=== PATIENT | female | born 1995 | race Caucasian/White ===

== ENCOUNTER 2023-06-03 18:21 | Emergency (ER) | payer BC, SELFPAY ==
[2023-06-03] VITALS (34 sets, daily range): BP systolic 113–153; BP diastolic 67–108; PULSE 71–103; RESP 12–44; TEMP 37.2; O2SAT 95–99; BMI 32.9
--- NOTE | 2023-06-03 18:25 | XR_ITS ---
Patient: GARDENIA MCCLOUD Facility:?[facility] Patient ID:?[id number] Site Patient ID:?[id number]. Site :?1995 Study:?XRay-Extremity Right ANKLE-06/03/2023 6:56:17 PM Ordering Physician:BRIT Final Report: Indication: Fall, deformity Technique: Two views Comparison: None Findings/Impression: There is a comminuted fracture at the margin of the medial malleolus extending to the posterior malleolus without significant displacement of the major fracture fragments. There is also an associated comminuted fracture of the distal fibular diaphysis with posterior displacement of the distal fracture fragment of 4 millimeters. Prominent posterior butterfly fragment. Associated soft tissue swelling. Dictated by Rudy Chino MD @ 06/03/2023 7:48:57 PM Signed by:?Rudy Chino MD @06/03/2023 7:48:57 PM (Electronic Signature)
--- NOTE | 2023-06-03 18:33 | ED.LOWEXIN ---
HPI - Extremity Injury (Lower) General Chief Complaint: Extremity Pain/Injury, Lower <Poncho Roldan MD - Last Filed: 06/03/23 20:42> Stated Complaint: fell, R leg pain <Poncho Roldan MD - Last Filed: 06/03/23 20:42> Time Seen by Provider: 06/03/23 18:23 <Poncho Roldan MD - Last Filed: 06/03/23 20:42> History of Present Illness HPI Narrative: This 27-year-old female comes in with an injury to her right ankle. She states that she was ambulating down some stairs and lost her footing and heard a couple cracks as she injured her right ankle. She comes in with swelling of her ankle. She does not report any other injury. She did not hit her head or have loss of consciousness. <Poncho Roldan MD - Last Filed: 06/03/23 20:42> Related Data Home Medications: Home Medications Medication Instructions Recorded Confirmed fluoxetine 20 mg capsule mg PO 06/03/23 loratadine 10 mg tablet (Claritin) 10 mg PO DAILY 06/03/23 06/03/23 oxycodone 5 mg tablet 5 mg PO DAILY PRN chronic pain 06/03/23 06/03/23 <Poncho Roldan MD - Last Filed: 06/03/23 20:42> Allergies/Adverse Reactions: Allergies Allergy/AdvReac Type Severity Reaction Status Date / Time No Known Drug Allergies Allergy Verified 06/03/23 18:35 <Poncho Roldan MD - Last Filed: 06/03/23 20:42> Review of Systems Status of ROS: Reports: 10 or more systems reviewed and unremarkable except as noted in History and below <Poncho Roldan MD - Last Filed: 06/03/23 20:42> Narrative: Constitutional: No fevers, no weight gain or loss. Eyes: No discharge. No vision changes. HENT: No congestion, no sore throat, no ear pain. Cardiovascular: No chest pain, no palpitations. Respiratory: No shortness of breath, no wheezes, no cough. Gastrointestinal: No abdominal pain, no vomiting, no diarrhea. Genitourinary: No dysuria, no hematuria. Musculoskeletal: Right ankle injury as described above. Skin: No rashes, no pruritis. Neurological: No dizziness, weakness, sensory change, speech change. Endo/Heme/Allergies: No bruising or bleeding. No polydipsia. Pysch: no suicidality, no anxiety, no insomnia. All other systems reviewed and are negative. <Poncho Roldan MD - Last Filed: 06/03/23 20:42> Exam Narrative: Exam Narrative: Constitutional: Well-developed, well-nourished, no acute distress. HEENT: Normocephalic, atraumatic. Neck: Normal range of motion. Nontender. Supple. Heart: Regular. No murmurs. Normal rate. Intact distal pulses. Lungs: Clear to auscultation. No chest discomfort. No wheezes, rhonchi, or rales. Abdomen: Normal bowel sounds. Nontender. No rebound tenderness. Genitalia: Deferred. Back: No midline tenderness. Normal range of motion. Extremities: Right ankle has swelling circumferentially. Skin: Intact. No rash. Warm. No erythema or pallor. Neurologic: No altered sensation. No weakness. Alert and oriented. Psychiatric: No suicidality. No anxiety or depression. No insomnia. Nursing notes and vitals signs are reviewed. <Poncho Roldan MD - Last Filed: 06/03/23 20:42> Const: Vital Signs, click to edit/add: Vital Signs - 24 hr 06/03/23 18:30 Temperature 99.0 F Pulse Rate [Pulse Oximeter] 96 Respiratory Rate 24 Blood Pressure [Ri ght Upper Arm] 144/108 H Pulse Oximetry 98 Oxygen Delivery Me thod Room Air <Poncho Roldan MD - Last Filed: 06/03/23 20:42> Vital Signs, click to edit/add: Vital Signs - 24 hr 06/03/23 18:30 Temperature 99.0 F Pulse Rate [Pulse Oximeter] 96 Respiratory Rate 24 Blood Pressure [Ri ght Upper Arm] 144/108 H Pulse Oximetry 98 Oxygen Delivery Me thod Room Air <Sharmaine Cohen MD - Last Filed: 06/03/23 21:02> Course Consultations Consultation #1: I, Dr. Cohen, was asked to assist for conscious sedation so that patient's leg with underlying fracture could be resplinted and re-evaluated. Her primary asked me to assist. She had appropriate hemodynamic and monitoring for conscious sedation. A total of 170 mg of propofol fall was given to achieve sedation. Patient did have supplemental oxygen on. There was no concerning hypoxia, no apnea. She recovered without complication. <Sharmaine Cohen MD - Last Filed: 06/03/23 21:02> Vital Signs Vital signs: Initial Vital Signs Temperature 99.0 F 06/03/23 18:30 Temperature Source Temporal Artery Scan 06/03/23 18:30 Pulse Rate 96 06/03/23 18:30 Respiratory Rate 24 06/03/23 18:30 Blood Pressure 144/108 H 06/03/23 18:30 Blood Pressure Mean 120 H 06/03/23 18:30 Blood Pressure Position Sitting 06/03/23 18:30 Pulse Oximetry 98 06/03/23 18:30 Oxygen Delivery Method Room Air 06/03/23 18:30 Vital Signs Temperature 99.0 F 06/03/23 18:30 Pulse Rate 96 06/03/23 18:30 Respiratory Rate 24 06/03/23 18:30 Blood Pressure 144/108 H 06/03/23 18:30 Pulse Oximetry 98 06/03/23 18:30 Oxygen Delivery Method Room Air 06/03/23 18:30 Temperature 99.0 F 06/03/23 18:30 Pulse Rate 96 06/03/23 18:30 Respiratory Rate 24 06/03/23 18:30 Blood Pressure 144/108 H 06/03/23 18:30 Pulse Oximetry 98 06/03/23 18:30 Oxygen Delivery Method Room Air 06/03/23 18:30 <Poncho Roldan MD - Last Filed: 06/03/23 20:42> Initial Vital Signs Temperature 99.0 F 06/03/23 18:30 Temperature Source Temporal Artery Scan 06/03/23 18:30 Pulse Rate 96 06/03/23 18:30 Respiratory Rate 24 06/03/23 18:30 Blood Pressure 144/108 H 06/03/23 18:30 Blood Pressure Mean 120 H 06/03/23 18:30 Blood Pressure Position Sitting 06/03/23 18:30 Pulse Oximetry 98 06/03/23 18:30 Oxygen Delivery Method Room Air 06/03/23 18:30 Vital Signs Temperature 99.0 F 06/03/23 18:30 Pulse Rate 96 06/03/23 18:30 Respiratory Rate 24 06/03/23 18:30 Blood Pressure 144/108 H 06/03/23 18:30 Pulse Oximetry 98 06/03/23 18:30 Oxygen Delivery Method Room Air 06/03/23 18:30 Temperature 99.0 F 06/03/23 18:30 Pulse Rate 96 06/03/23 18:30 Respiratory Rate 24 06/03/23 18:30 Blood Pressure 144/108 H 06/03/23 18:30 Pulse Oximetry 98 06/03/23 18:30 Oxygen Delivery Method Room Air 06/03/23 18:30 <Sharmaine Cohen MD - Last Filed: 06/03/23 21:02> Medications Administered Medications: Generic Name Dose Route Start Last Admin Trade Name Freq PRN Reason Stop Dose Admin Hydromorphone HCl 0.5 mg 06/03/23 20:34 06/03/23 19:48 Hydromorphone 0.5 Mg/0.5 Ml Inj IVP 06/03/23 20:35 0.5 mg ONCE ONE Administration Sodium Chloride 1,000 mls @ 1,000 mls/hr 06/03/23 21:00 06/03/23 20:00 0.9 % Sodium Chloride 1000 Ml IV 06/03/23 21:59 1,000 mls/hr .Q1H DOMO Administration Discontinued Medications Generic Name Dose Route Start Last Admin Trade Name Freq PRN Reason Stop Dose Admin Hydromorphone HCl 0.5 mg 06/03/23 18:32 06/03/23 18:39 Hydromorphone 0.5 Mg/0.5 Ml Inj IVP 06/03/23 18:33 0.5 mg ONCE ONE Administration Propofol 200 mg 06/03/23 19:56 06/03/23 20:04 Propofol 10 Mg/Ml Inj IVP 06/03/23 19:57 170 mg ONCE ONE Administration <Poncho Roldan MD - Last Filed: 06/03/23 20:42> Generic Name Dose Route Start Last Admin Trade Name Freq PRN Reason Stop Dose Admin Hydromorphone HCl 0.5 mg 06/03/23 20:34 06/03/23 19:48 Hydromorphone 0.5 Mg/0.5 Ml Inj IVP 06/03/23 20:35 0.5 mg ONCE ONE Administration Sodium Chloride 1,000 mls @ 1,000 mls/hr 06/03/23 21:00 06/03/23 20:00 0.9 % Sodium Chloride 1000 Ml IV 06/03/23 21:59 1,000 mls/hr .Q1H DOMO Administration Discontinued Medications Generic Name Dose Route Start Last Admin Trade Name Freq PRN Reason Stop Dose Admin Hydromorphone HCl 0.5 mg 06/03/23 18:32 06/03/23 18:39 Hydromorphone 0.5 Mg/0.5 Ml Inj IVP 06/03/23 18:33 0.5 mg ONCE ONE Administration Propofol 200 mg 06/03/23 19:56 06/03/23 20:04 Propofol 10 Mg/Ml Inj IVP 06/03/23 19:57 170 mg ONCE ONE Administration <Sharmaine Cohen MD - Last Filed: 06/03/23 21:02> MDM - Extremity Injury (Lower) MDM Narrative Medical decision making narrative: This patient comes in with an injury to her right ankle. X-ray imaging does show evidence of a comminuted fracture at the margin of the medial malleolus without any significant displacement. There is also a comminuted fracture of the distal fibula. The patient has an IV in place and did receive a dose of Dilaudid 0.5 mg. The alignment of the ankle appeared reasonable enough to apply a cast without any extra sedation. The patient had significant pain with this and that splint placed did not cause improved pain. The patient then received propofol sedation after acquiring informed consent. A new Ramana Monaco splint was placed with much better alignment and outcome. The patient received crutches and prescription for oxycodone. She is instructed to follow-up with orthopedic clinic for surgical repair next week. Dr. Vasquez assisted in the sedation. The patient received 170 mg of propofol and tolerated this well. <Poncho Roldan MD - Last Filed: 06/03/23 20:42> Imaging Data XR ankle R: Radiologist's impression: There is a comminuted fracture at the margin of the medial malleolus extending to the posterior malleolus without significant displacement of the major fracture fragments. There is also an associated comminuted fracture of the distal fibular diaphysis with posterior displacement of the distal fracture fragment of 4 mm. Prominent posterior butterfly fragment. Associated soft tissue swelling. <Poncho Roldan MD - Last Filed: 06/03/23 20:42> Discharge Plan Discharge Clinical Impression: Ankle fracture <Poncho Roldan MD - Last Filed: 06/03/23 20:42> Patient Disposition: Home w/ Parent or Adult <Poncho Roldan MD - Last Filed: 06/03/23 20:42> Condition: Stable <Poncho Roldan MD - Last Filed: 06/03/23 20:42> Additional Instructions: Wear splint with no weight-bearing. Use crutches for ambulating. Use oxycodone as needed and directed for pain relief. Follow-up with orthopedic clinic for further management and treatment. Call [phone] for appointment. <Poncho Roldan MD - Last Filed: 06/03/23 20:42> Prescriptions: No Action fluoxetine 20 mg capsule PO oxycodone 5 mg tablet 5 mg PO DAILY PRN (Reason: chronic pain) loratadine [Claritin] 10 mg tablet 10 mg PO DAILY <Poncho Roldan MD - Last Filed: 06/03/23 20:42> Follow Up/Referrals: Provider,Not a Local [Primary Care Provider] - <Poncho Roldan MD - Last Filed: 06/03/23 20:42> [facility] <Poncho Roldan MD - Last Filed: 06/03/23 20:42>
[2023-06-03] MEDS: HYDROmorphone 0.5 mg/0.5 ml inj IVP ×2 (18:39→19:48)
[2023-06-03] MEDS: 0.9 % SODIUM CHLORIDE 1000 ml 1,000 ML IV (20:00)
[2023-06-03] MEDS: PROPOFOL 10 MG/ML INJ 200 MG IVP (20:04)
== END 2023-06-03 23:14 | disposition home or self-care (01) ==
PROVIDERS: Emergency Provider Emergency Medicine Emergency Medical Services
DX: S82.891A Other fracture of right lower leg, initial encounter for closed fracture (principal); W19.XXXA Unspecified fall, initial encounter
CPT/HCPCS: 73600; 96361; 96374; 96375; 96376; 99156; 99284; J1170; J2704; J7030

== ENCOUNTER 2023-06-08 15:46 | Outpatient (CLI) | payer BC, SELFPAY | END 2023-06-08 15:47 | disposition home or self-care (01) | PROVIDERS: PCP Nurse Practitioner Family; Visit Provider Nurse Practitioner Family | DX: Z13.228 Encounter for screening for other metabolic disorders (principal); Z13.0 Encounter for screening for diseases of the blood and blood-forming organs and certain disorders involving the immune mechanism | CPT/HCPCS: 80048; 85025 ==

== ENCOUNTER 2023-06-10 09:32 | Day surgery (SDC) | payer BC, SELFPAY ==
[2023-06-10] VITALS (24 sets, daily range): BP systolic 108–163; BP diastolic 56–125; PULSE 70–112; RESP 16–28; TEMP 36.1–36.9; O2SAT 95–100; BMI 32.1
[2023-06-10] MEDS: SODIUM CHLORIDE 0.9 % (FLUSH) 10 ML SYRINGE IVF (09:55)
[2023-06-10] MEDS: LACTATED RINGERS 1000 ML 1,000 ML 100 ML IV ×3 (09:55→15:17)
--- NOTE | 2023-06-10 10:15 | SUR.PREOP ---
TIME?OUT:?1012 PT/RN/STATE EPIDEMIOLOGIST?VERIFICATION?OF?SURGICAL?SITE,?PROCEDURE,?AND?CONSENT OBTAINED?PRIOR?TO?INVASIVE?PROCEDURE.
[2023-06-10] MEDS: fentaNYL 100 MCG/2 ML inj IVP (10:22)
[2023-06-10] MEDS: MIDAZOLAM HCL 1 MG/ML inj IVP (10:22)
--- NOTE | 2023-06-10 10:45 | XR_ITS ---
Patient: GARDENIA MCCLOUD Facility:?[facility] Patient ID:?[id number] Site Patient ID:?[id number]. Site :?[id number] Study:?XRay-Extremity Right ANKLE ORIF-06/10/2023 1:46:31 PM Ordering Physician:WALLACE Final Report: INDICATION: Intraoperative guidance right ankle fracture. IMPRESSION: Three fluoroscopic images. 221 seconds fluoro time. Instrumented fusion of the tibia syndesmosis and fibular intramedullary nail which extends above the field of view. Dictated by Ebenezer Black MD @ 06/13/2023 10:24:56 AM Signed by:?Ebenezer Black MD @06/13/2023 10:24:56 AM (Electronic Signature)
[2023-06-10] MEDS: CEFAZOLIN 2 GM INJ IVP (11:10)
--- NOTE | 2023-06-10 12:38 | P.NB_ITS ---
Nerve Block Nerve Block Time Seen by Provider: 10:15 Date Seen: 06/10/23 Type of block requested by surgeon for post-operative analgesia: adductor canal Side: right Time out performed: Yes Verification of patient name: Yes Verification of date of : Yes Site marking: site marked Name of person performing procedure: Say Lin Continuous monitoring Was continuous monitoring of O2 sat, B/P, residential monitor, recorded every 15 minutes?: Yes Procedure Checklist: sterile prep, needles and gloves Ultrasound guided. Images saved: Yes Medications given in 5ml increments after negative aspiration: Ropivicaine %: 0.5 mL: 15 Needle gauge: 20 Decadron (mg): 10 Precedex (mcg): 25 Patient tolerated procedure well: Yes Additional comments: Injected in 5mL increments after negative aspiration Block Charges Block Charge (with Pro Fee): Femoral Nerve Use of Ultrasound Machine for Block: Yes- US Guidance/pain block
--- NOTE | 2023-06-10 12:40 | P.NB_ITS ---
Nerve Block Nerve Block Time Seen by Provider: 10:15 Date Seen: 06/10/23 Type of block requested by surgeon for post-operative analgesia: popliteal Side: right Time out performed: Yes Verification of patient name: Yes Verification of date of : Yes Site marking: site marked Name of person performing procedure: Say Lin Continuous monitoring Was continuous monitoring of O2 sat, B/P, quality assurance monitor final, recorded every 15 minutes?: Yes Procedure Checklist: sterile prep, needles and gloves Ultrasound guided. Images saved: Yes Medications given in 5ml increments after negative aspiration: Ropivicaine %: 0.5 mL: 15 Needle gauge: 20 Patient tolerated procedure well: Yes Additional comments: Injected in 5mL increments after negative aspiration Block Charges Block Charge (with Pro Fee): Sciatic Nerve Use of Ultrasound Machine for Block: Yes- US Guidance/pain block
--- NOTE | 2023-06-10 13:33 | PM.ORPRC ---
Procedure Note Date of procedure: 06/10/23 Procedure: PREOPERATIVE DIAGNOSIS: Right ankle Cervantes C trimalleolar fracture POSTOPERATIVE DIAGNOSIS: Right ankle Cervantes C trimalleolar fracture NAME OF OPERATION: ORIF SURGEON: Ishan Johnson MD VICE PRESIDENT OF ADVERTISING: Sara Swan PA-C ANESTHESIA: General plus popliteal block ESTIMATED BLOOD LOSS: 20 mL COMPLICATIONS: None SPECIMENS: None DRAINS: None PREOPERATIVE ANTIBIOTICS: Ancef 2 g INDICATIONS: The patient is a 27-year-old who sustained a right ankle fracture. ORIF was recommended. The risks, benefits and expected outcomes were discussed in detail. These included but were not limited to: Infection, bleeding, injury to blood vessel or nerve, venous thromboembolism. All questions were answered to their satisfaction. Use of an administrative office assistant was necessary throughout the case for patient positioning and safety, soft tissue retraction and closure. A modifier 22 should be added to this case. With the amount of comminution of both the fibula and the medial malleolus, obtaining and maintaining a reduction was quite difficult. This more than doubled the time typically required to complete the case. PROCEDURE: A popliteal block was placed by anesthesia. General anesthesia was administered. The lower extremity was prepped and draped in the usual sterile fashion. The guide pin was placed in the center of the distal fragment of the fibula, percutaneously. Its placement was confirmed with the image intensifier in multiple views. A stab incision was made around the guide pin. The opening reamer was used, to the fracture site. 2 percutaneous incisions were made over the lateral malleolus distally and 2 were made at the fracture site. These were used to regain length on the distal fragment with a reduction clamp and proximally to hold the fracture reduced with a Calvin elevator posterior to the distal fragment. The reduction finger was placed in the canal and taken to the fracture site. The long flexible guide vikas was placed across the fracture site. The 3.2 mm reamer was used in the proximal fragment. We placed the Arthrex 3 mm x 180 mm intramedullary nail. We placed a drill bit across distal syndesmotic screw hole into nail to hold the construct out to length. Attention was then turned to the medial side. A curvilinear incision was made over the medial malleolus, just distal to the fracture blisters. Subcutaneous dissection was sharply taken to the medial malleolus. Subperiosteal dissection was sharply made to expose the fracture. There was a marked amount of posterior comminution. The anterior landmarks were easily observed. Fracture hematoma was removed with a curette, forceps, suction and irrigation. We then obtained an anatomic reduction. We placed an Arthrex 3 hole medial malleolus hook plate over the medial cortex. It was tamped into place distally to engage the Hawks. Its placement was confirmed with the image intensifier. We placed 2 bicortical screws in the proximal fragment to secure the plate in an antiglide position. This provides excellent fixation of the fracture which is reduced anatomically. Attention was then returned to the fibula. We removed the drill bit and our construct remained out to length. The talons were deployed. We placed 2 x 3.5 mm quadracortical syndesmotic screws. This nicely reduces the syndesmosis. We placed 2 screws in the distal fragment. The rim buster was removed, the end cap was placed. This provides an excellent reduction of the fibula with excellent fixation. Implants were imaged in the AP, mortise and lateral views and were felt to be well placed with an excellent reduction. The talus is nicely reduced under the tibial plafond. The wounds were irrigated with normal saline. The administrative office assistant closed the medial incision with a 3-0 Vicryl and a 3-0 Monocryl in a subcuticular fashion. The syndesmotic screw incision was closed identically. The percutaneous incisions were closed with a 3-0 nylon in a simple interrupted fashion. The administrative office assistant placed a dry dressing and short leg Ramana Monaco splint. Sponge and needle counts were correct x 2. The patient tolerated the procedure well. There were no apparent complications. They were carefully transferred to the hospital bed and taken to the postanesthesia care unit in satisfactory condition. PLAN: The patient will be discharged to home. They will remain strict nonweightbearing on the lower extremity. They will continue to work on ice and elevation. She will follow up next week for wound check and three views of her ankle out of the splint prior to being seen in preparation for a short-leg, nonweightbearing cast for another 5 weeks.
[2023-06-10] MEDS: fentaNYL 100 MCG/2 ML inj 50 MCG IVP ×3 (14:24→14:54)
--- NOTE | 2023-06-10 14:27 | W.ANESCHARGE ---
Anesthesia Charges Start Date/Time Anesthesia Start Date: 06/10/23 Anesthesia Start Time: 10:55 Stop Date/Time Anesthesia Stop Date: 06/10/23 Anesthesia Stop Time: 14:24
[2023-06-10] MEDS: HYDROmorphone 0.5 mg/0.5 ml inj IVP (14:35)
--- NOTE | 2023-06-10 14:58 | SUR.PHASEI ---
TIME?OUT:?1454 PT/RN/MDA?VERIFICATION?OF?SURGICAL?SITE,?PROCEDURE,?AND?CONSENT OBTAINED?PRIOR?TO?INVASIVE?PROCEDURE.
[2023-06-10] MEDS: METOCLOPRAMIDE HCL 5 MG/ML INJ 10 MG IVP (16:03)
--- NOTE | 2023-06-10 16:20 | SUR.PHASEII ---
1600: Pt reports feeling nauseated, pt had 200cc yellow bile colored emesis. cold wash cloth applied to forehead. Pt tolerated sips of Sprite and crackers. pt requests to use bathroom, dizzy when getting up to sit in chair, wheelchair into BR with RN. Pt alert and orientated.
--- NOTE | 2023-06-10 16:58 | SUR.PHASEII ---
1640: reviewed d/c instruction with and pt. All questions answered. Pt did have another emesis, unseen amount. pt states she would like to go home. Wheelchair ride out to car, accompanied by .
== END 2023-06-10 17:02 | disposition home or self-care (01) ==
PROVIDERS: Visit Provider Orthopaedic Surgery
PROC: (CPT 27822; principal; 2023-06-10 10:45)
DX: S82.851A Displaced trimalleolar fracture of right lower leg, initial encounter for closed fracture (principal); G89.18 Other acute postprocedural pain
CPT/HCPCS: 27822; 01480; 64445; 64447; 73600; 76000; 76942; 81025; C1713; J0690; J1100; J1170; J1885; J2250; J2405; J2704; J2765; J2795; J3010; J3490; J7120

== ENCOUNTER 2023-08-18 09:45 | Outpatient (RCR) | payer BC, SELFPAY | END 2023-12-16 23:59 | disposition home or self-care (01) | PROVIDERS: Visit Provider Orthopaedic Surgery | DX: Z98.890 Other specified postprocedural states (principal); M25.571 Pain in right ankle and joints of right foot; M25.671 Stiffness of right ankle, not elsewhere classified; Z51.89 Encounter for other specified aftercare | CPT/HCPCS: 97110; 97140; 97161 ==

== ENCOUNTER 2023-09-14 06:26 | Day surgery (SDC) | payer BC, SELFPAY ==
--- NOTE | 2023-09-14 | CRLHL7_ITS ---
For Patients: As a result of the Cures Act, medical imaging exams and procedure reports are released immediately into your electronic medical record. You may view this report before your referring provider. If you have questions, please contact your health care provider. Indication: Syndesmotic screw removal Technique: Three fluoroscopic images of the right ankle. Fluoroscopic time 10 seconds. Comparison: 09/01/2023 IMPRESSION: Fluoroscopic guidance for syndesmotic screw removal. Dictated by Carlos Alberto Haro MD @ 09/15/2023 7:16:05 AM (Electronically Signed)
--- OUTSIDE RECORDS SUMMARY | 2023-09-14 06:28 | XMS_ITS | Encounter Summary ---
Author Organization [place] Address [address] [place] [address] Care Team Providers Care Communication Studies Professor Name Role Phone Zak Lin MD Unavailable Arturo Cruz MD Unavailable [phone] Bette Olmos PA-C Unavailable + [phone] Bette Olmos PA-C Unavailable + [phone] Jessie Ashraf PA-C Unavailable [phone] Dada Schultz DO Primary Care Provider [phone] Dada Schultz DO Unavailable [phone] Carolina Hancock PA-C Unavailable [phone] Encounter Details Date Type Department Care Team (Late st Contact Info) Description 06/01/2022 [facility] [place] [address] [address] Leanne Shukla, RN Social History Tobacco Use Types Packs/Day Years Used Date Smoking Tobacco: Never Smokeless Tobacco: Never Alcohol Use Standard Drinks/Week Comments Never 0 (1 standard drink = 0.6 oz pur e alcohol) Social Connection and Isolat ion Panel [NHANES] Answer Date Recorded In a typical week, how many times do you talk on the phone with family, friends, or neighbors? Twice a week 08/20/2021 How often do you get togethe r with friends or relatives? More than three times a week 08/20/2021 How often do you attend [facility] or sikhism services? Never 08/20/2021 Do you belong to any clubs o r organizations such as orthodox groups, unions, fraternal or athletic groups, or school groups? No 08/20/2021 Attends Club or Organization Meetings Not on lavonne e 08/20/2021 Are you , , di vorced, , never , or living with a partner? Never 08/20/2021 AUDIT-C Answer Date Recorded Q1: How often do you have a drink containing alcohol? Never 08/20/2021 Q2: How many drinks containi ng alcohol do you have on a typical day when you are drinking? Patient does not drink Q3: How often do you have si x or more drinks on one occasion? Never 08/20/2021 Overall Financial Resource Strain (CARDIA) Answe r Date Recorded How hard is it for you to pa y for the very basics like food, housing, medical care, and heating? Somewhat hard 08/20/2021 PHQ-2 Answer Date Recorded PHQ-2 Score 2 04/27/2022 Exercise Vital Sign Answer Date Recorde d On average, how many days pe r week do you engage in moderate to strenuous exercise (like a brisk walk)? 5 days 08/20/2021 On average, how many minutes do you engage in exercise at this level? 50 min 08/20/2021 Hunger Vital Sign Answer Date Recorded Within the past 12 months, y ou worried that your food would run out before you got the money to buy more. Patient declined Within the past 12 months, t he food you bought just didn't last and you didn't have money to get more. Patient declined PRAPARE - Transportation Answer Date Re corded In the past 12 months, has l ack of transportation kept you from medical appointments or from getting medications? No 08/06 In the past 12 months, has l ack of transportation kept you from meetings, work, or from getting things needed for daily living? No 08/20/2021 Sex and Gender Information Value Date Recorded Sex Assigned at Female 11/25/2020 10:59 AM CDT Gender Identity Female 11/25/2020 10:59 AM CDT Sexual Orientation Fritz 11/19/2022 11 :19 PM CDT COVID-19 Exposure Response Date Recorded In the last 10 days, have anya lora been in contact with someone who was confirmed or suspected to have Coronavirus/COVID-19? No / Unsure 05/20/2022 9:43 AM CDT documented as of this encounter Plan of Treatment Not on file documented as of this encounter Visit Diagnoses Not on filedocumented in this encounter Additional Health Concerns Assessment Noted Time PHQ-9 Depression Total Score: 14 023 2:01 PM SENIOR CHEMICAL PROCESS ENGINEER documented as of this encounter Care Teams Communication Studies Professor Relationship Specialty [place] [address] [place] [address] PCP - General Family Medicine 01/01/22 [place] [address] [address] Assigned Musculoskeletal Provider 04/27/21 12/11/22 Arturo Cruz MD [address] [place], [place] [address]175 Assigned Neuroscience Provider 06/08/21 11/27/22 Bette Olmos PA-C [address] [place], [place] [address] Physician Motor Vehicle Emissions Inspector Gastroenterology 06/30/21 Bette Olmos PA-C [address] [place] [address] Physician Motor Vehicle Emissions Inspector Gastroenterology 06/30/21 Jessie Ashraf PA-C [address] [address] Assigned Sleep Provider 08/30/21 [place] [address] [place] [address] Assigned PCP 05/09/22 Carolina Hancock PA-C [address] [place] [address] Assigned Gastroenterology Provider 04/01/23 07/28/23 documented as of this encounter
--- OUTSIDE RECORDS SUMMARY | 2023-09-14 06:28 | XMS_ITS | Encounter Summary ---
Author Organization [place] Address [address] [place] [address] Care Team Providers Care Sociocultural Anthropology Professor Name Role Phone Bette Olmos PA-C Unavailable + [phone] Bette Olmos PA-C Unavailable + [phone] Jessie Ashraf-Hiram Unavailable [phone] Dada Schultz DO Primary Care Provider [phone] Dada Schultz DO Unavailable [phone] Carolina Hancock-Hiram Unavailable [phone] Reason for Visit * Reason Comments Orders Patient would like a n order for a wheelchair. Encounter Details Date Type Department Care Team (Late st Contact Info) Description 06/25/2023 1:00 PM CDT Virtual Visit [address] [address] Dada Schultz DO [address] [place] [address] Ankle fracture, right, closed, initial encounter (Primary Dx); Gastroesophageal reflux disease with esophagitis without hemorrhage; Moderate major depression (H) Social History Tobacco Use Types Packs/Day Years Used Date Smoking Tobacco: Never Smokeless Tobacco: Never Alcohol Use Standard Drinks/Week Comments Never 0 (1 standard drink = 0.6 oz pur e alcohol) Social Connection and Isolat ion Panel [NHANES] Answer Date Recorded In a typical week, how many times do you talk on the phone with family, friends, or neighbors? More than three times a week 2022 How often do you get togethe r with friends or relatives? More than three times a week 2022 How often do you attend chur or restorationist services? Never 2022 Do you belong to any clubs o r organizations such as scientologist groups, unions, fraternal or athletic groups, or school groups? Yes 2022 Attends Club or Organization Meetings Not on lavonne e 2022 Are you , , di vorced, , never , or living with a partner? Living with partner 2022 AUDIT-C Answer Date Recorded Q1: How often do you have a drink containing alcohol? Never 2022 Q2: How many drinks containi ng alcohol do you have on a typical day when you are drinking? Patient does not drink Q3: How often do you have si x or more drinks on one occasion? Never 2022 PHQ-2 Answer Date Recorded PHQ-2 Score 2 06/25/2023 [facility]ational Stress Questionnaire Answer Date Recorded Do you feel stress - tense, restless, nervous, or anxious, or unable to sleep at night because your mind is troubled all the time - these days? Only a little 2022 Exercise Vital Sign Answer Date Recorde d On average, how many days pe r week do you engage in moderate to strenuous exercise (like a brisk walk)? 5 days 2022 On average, how many minutes do you engage in exercise at this level? 30 min 2022 Adolescent Education Answer Date Record ed Getting School Help Needed Not on file 11/27 Food Insecurity Answer Date Recorded Within the past 12 months, d id you worry that your food would run out before you got money to buy more? No 02/05/2023 Within the past 12 months, d id the food you bought just not last and you didn? t have money to get more? No 02/05/2023 Housing Stability Answer Date Recorded Do you have housing? (Housin g is defined as stable permanent housing and does not include staying ouside in a car, in a tent, in an abandoned building, in an overnight half-way, or couch-surfing.) Yes 02/05/2023 Are you worried about losing your housing? No 02/05/2023 Financial Resource Strain Answer Date R ecorded Within the past 12 months, h ave you or your family members you live with been unable to get utilities (heat, electricity) when it was really needed? No 02/05/2023 Transportation Needs Answer Date Record ed Within the past 12 months, h as lack of transportation kept you from medical appointments, getting your medicines, non-medical meetings or appointments, work, or from getting things that you need? No 02/05/2023 Sex and Gender Information Value Date Recorded Sex Assigned at Female 11/25/2020 10:59 AM CDT Gender Identity Female 11/25/2020 10:59 AM CDT Sexual Orientation Fritz 11/19/2022 11 :19 PM CDT documented as of this encounter Patient Instructions * Patient Instructions* Dada Schultz DO - 06/25/2023 1:00 PM CDT Printed wheelchair order done. Follow-up for preventive health visit after healed up from right ankle injury. documented in this encounter Progress Notes * Dada Schultz DO - 06/25/2023 1:00 PM CDT Shine is a 27 year old who is being evaluated via a billable video visit. How would you like to obtain your AVS? MyChart If the video visit is dropped, the invitation should be resent by: Text to cell phone: [phone] Will anyone else be joining your video visit? No Assessment & Plan See patient instructions. Ankle fracture, right, closed, initial encounter - Wheelchair Order for DME - ONLY FOR DME Gastroesophageal reflux disease with esophagitis without hemorrhage - ondansetron (ZOFRAN ODT) 4 MG ODT tab Dispense: 60 tablet; Refill: 1 - pantoprazole (PROTONIX) 20 MG EC tablet Dispense: 90 tablet; Refill: 0 Moderate major depression (H) - FLUoxetine (PROZAC) 20 MG capsule Dispense: 270 capsule; Refill: 0 BMI Estimated body mass index is 31 kg/m?? as calculated from the following: Height as of 01/26/23: 1.6 m (5' 3). Weight as of 01/26/23: 79.4 kg (175 lb). Alice Riojas is a 27 year old, presenting for the following health issues: Orders (Patient would like an order for a wheelchair.) 06/25/2023 12:38 PM Additional Questions Roomed by Sissy Becerra MA Accompanied by Self History of Present Illness Reason for visit: Mobility aid Symptom onset: More than a month Symptoms include: Loss of balance, falls, falling down stairs and fractured ankle, fell and bumped head the next day Symptom intensity: Severe Symptom progression: Worsening Had these symptoms before: Yes Has tried/received treatment for these symptoms: No What makes it worse: Walking, increased heartbeat makes me feel horrible What makes it better: Rest and sitting She eats 2-3 servings of fruits and vegetables daily.She consumes 4 sweetened beverage(s) daily.Sheexercises with enough effort to increase her heart rate 30 to 60 minutes per day. She exercises with enough effort to increase her heart rate 7 days per week. She is missing 2 dose(s) of medications per week. She is not taking prescribed medications regularly due to remembering to take. Patient visit done primarily to obtain order for wheelchair. Patient is having difficulty with ambulation due to recent right ankle fracture. Patient has had trouble with balance. She has been using a walker, and a wheelchair she got from [employer]. Her wheelchair from [employer] seems too big for her, so she would like another one to choose from. She lost her balance on stairs, falling and breaking her right ankle. Is getting her pain managed through [facility]. Patient will be wearing a cast for at least about 6 weeks, and have to be non- weight bearing. She hopes to be able to wear a walking boot after this. Date of injury was 06/03/2023. Medications refilled for depression and GERD management, with medications working well. Objective Physical Exam GENERAL: alert and no distress EYES: Eyes grossly normal to inspection. No discharge or erythema, or obvious scleral/conjunctival abnormalities. RESP: No audible wheeze, cough, or visible cyanosis. SKIN: Visible skin clear. No significant rash, abnormal pigmentation or lesions. NEURO: Cranial nerves grossly intact. Mentation and speech appropriate for age. PSYCH: Appropriate affect, tone, and pace of words Right lower extremity exam: Patient is noted on video visit to be wearing a RLE cast from forefoot,approximately throughout the lower leg. Video-Visit Details Type of service: Video Visit Originating Location (pt. Location): Home Distant Location (provider location): On-site Platform used for Video Visit: Lele Signed Electronically by: Dada Schultz DO documented in this encounter Plan of Treatment Not on file documented as of this encounter Visit Diagnoses Diagnosis Ankle fracture, right, closed, initial encounter- Primary Gastroesophageal reflux disease with esophagitis without hemorrhage Moderate major depression (H) Major depressive disorder, single episode, moderate documented in this encounter Additional Health Concerns Assessment Noted Time PHQ-9 Depression Total Score: 11 024 1:48 PM CDT documented as of this encounter Care Teams Sociocultural Anthropology Professor Relationship Specialty [place] [address] [place] [address] PCP - General Family Medicine 01/01/22 Bette Olmos PA-C [address] [place] [address] Physician Manager Scientific Gastroenterology 06/30/21 Bette Olmos PA-C [address] [place] [address] Physician Manager Scientific Gastroenterology 06/30/21 Jessie Ashraf PA-C [address] [facility] [address] [address] Assigned Sleep Provider 08/30/21 [place] [address] [place] [address] Assigned PCP 05/09/22 Carolina Hancock PA-C [address] [place] [address] Assigned Gastroenterology Provider 04/01/23 07/28/23 documented as of this encounter
--- OUTSIDE RECORDS SUMMARY | 2023-09-14 06:28 | XMS_ITS | Encounter Summary ---
Author Organization [facility] Address [address] [place] [address] Care Team Providers Care Automation Machine Operator Name Role Phone Bette Olmos-C Unavailable + [phone] Bette Olmos-Hiram Unavailable + [phone] Jessie Ashraf-C Unavailable [phone] Dada Schultz DO Primary Care Provider [phone] Dada Schultz DO Unavailable [phone] Carolina Hancock-C Unavailable [phone] Encounter Details Date Type Department Care Team (Late st Contact Info) Description 06/21/2023 [facility] Medical Advice [address] [address] [place] [id number] [place] [address] Social History Tobacco Use Types Packs/Day Years [...] week 2022 How often do you attend [facility] or adventist services? Never 2022 Do you belong to any clubs o r organizations such as religious groups, unions, fraternal or athletic groups, or [...] Answer Date Recorded PHQ-2 Score 2 06/25/2023 [facility] - Occupational Stress Questionnaire Answer [...] in an abandoned building, in an overnight penitentiary, or couch-surfing.) Yes 02/05/2023 Are you worried [...] PM CDT documented as of this encounter Miscellaneous Notes * Telephone Encounter - Slime Isabel RN - 06/22/2023 3:00 PM CDT Please contact patient and help arrange for a video or in person visit using a provider approval appointment if needed. Dada Schultz DO on 06/22/2023 at 2:31 PM Routing to Manager Multimedia to assist patient with scheduling. Slime Isabel R.N. * Telephone Encounter - Slime Isabel RN - 06/22/2023 9:02 AM CDT See patient update--Team My Mobilet message. Slime Isabel R.N. documented in this encounter Plan of Treatment Not on file documented as of this encounter Visit Diagnoses Not on filedocumented in this encounter Additional Health Concerns Assessment Noted Time PHQ-9 Depression Total Score: 14 023 11:21 AM CDT documented as of this encounter Care Teams Automation Machine Operator Relationship Specialty [place] [address] [place] [address] PCP - General Family Medicine 01/01/22 Bette Olmos PA-C [address] [place] [address] Physician Keyboard Instrument Repairer Gastroenterology 06/30/21 Bette Olmos PA-C [address] [place], [place] 4[address] Physician Keyboard Instrument Repairer Gastroenterology 06/30/21 Jessie Ashraf PA-C [address] [id number] Assigned Sleep Provider 08/30/21 [place] [address] [address] [place], [place] [id number] Assigned PCP 05/09/22 Carolina Hancock PA-C [address] [facility], [place] [address] Assigned Gastroenterology Provider 04/01/23 07/28/23 documented as of this encounter
--- OUTSIDE RECORDS SUMMARY | 2023-09-14 06:28 | XMS_ITS | Encounter Summary ---
Author Organization [facility] Address [address] [place] [address] Care Team Providers Care Prick Stitcher Name Role Phone Zak Lin MD Unavailable Arturo Cruz MD Unavailable [phone] Bette Olmos PA-C Unavailable + [phone] Bette Olmos PA-C Unavailable + [phone] Jessie Ashraf PA-C Unavailable [phone] Dada Schultz DO Primary Care Provider Dada Schultz DO Unavailable [phone] Carolina Hancock PA-C Unavailable [phone] Encounter Details Date Type Department Care Team (Late st Contact Info) Description 05/27/2022 [facility] Medical Advice [facility] [id number] [place] [address] [place] [id number] [place] [address] [id number] Social History Tobacco Use Types Packs/Day Years [...] week 08/20/2021 How often do you attend chur ch or taoism services? Never 08/20/2021 Do you belong to any clubs o r organizations such as jewish groups, unions, fraternal or athletic groups, or [...] Recorded In the last 10 days, have yo u been in contact with someone who was confirmed or suspected to have Coronavirus/COVID-19? No / Unsure 05/20/2022 9:43 AM CDT documented as of this encounter Plan of Treatment Not on file documented as of this encounter Visit Diagnoses Not on filedocumented in this encounter Additional Health Concerns Assessment Noted Time PHQ-9 Depression Total Score: 14 023 2:01 PM DRAFTER APPRENTICE documented as of this encounter Care Teams Prick Stitcher Relationship Specialty [place] [address] [place] [address] PCP - General Family Medicine 01/01/22 [place] [address] [place] [facility] [address] [place], [place] [address] Assigned Musculoskeletal Provider 04/27/21 12/11/22 Arturo Cruz MD [address] [place] [address]56015 Assigned Neuroscience Provider 06/08/21 11/27/22 Bette Olmos PA-C [address] [place] [address]3735 Physician Recreation Therapy Aide Gastroenterology 06/30/21 Bette Olmos PA-C [address] [place] [address] Physician Recreation Therapy Aide Gastroenterology 06/30/21 Jessie Ashraf PA-C [address] [place] [address] Assigned Sleep Provider 08/30/21 [place] [address] [place] [address] Assigned PCP 05/09/22 Carolina Hancock PA-C [address] [facility] [place] [place] [place] [address] Assigned Gastroenterology Provider 04/01/23 07/28/23 documented as of this encounter
--- OUTSIDE RECORDS SUMMARY | 2023-09-14 06:28 | XMS_ITS | Encounter Summary ---
Author Organization [facility] Address [address] [place] [address] Care Team Providers Care Tax Examiner Name Role Phone Bette Olmos-Hiram Unavailable + [phone] Bette Olmos-Hiram Unavailable + [phone] Jessie Ashraf-C Unavailable + [phone] Dada Schultz DO Primary Care Provider Dada Schultz DO Unavailable [phone] Carolina Hancock-C Unavailable [phone] Encounter Details Date Type Department Care Team (Late st Contact Info) Description 06/07/2023 My[facility] Medical Advice [address] [address] [place] [address] [place] [address] Social History Tobacco Use Types Packs/Day [...] week 2022 How often do you attend [facility] or orthodox services? Never 2022 Do you belong to any clubs o r organizations such as yarsani groups, unions, fraternal or athletic groups, or [...] PHQ-2 Answer Date Recorded PHQ-2 Score 2 01/26/2023 [facility] - Occupational [...] in an abandoned building, in an overnight care home, or couch-surfing.) Yes 02/05/2023 Are you worried [...] Telephone Encounter - Slime Isabel RN - 06/07/2023 2:41 PM CDT see patient message, please advise patient has appointment with you on 06/15/23. Slime Isabel R.N. documented in this encounter Plan of Treatment Not on file documented as of this encounter Visit Diagnoses Not on filedocumented in this encounter Additional Health Concerns Assessment Noted Time PHQ-9 Depression Total Score: 14 023 11:21 AM CDT documented as of this encounter Care Teams Tax Examiner Relationship Specialty [place] [address] [place] [address] PCP - General Family Medicine 01/01/22 Bette Olmos PA-C [address] [place] [address] Physician Strap Setter Gastroenterology 06/30/21 Bette Olmos PA-C [address] [place] [address] Physician Strap Setter Gastroenterology 06/30/21 Jessie Ashraf PA-C [address] [place] [address] Assigned Sleep Provider 08/30/21 [place] [address] [place] [address] Assigned PCP 05/09/22 Carolina Hancock PA-C [address] [place] [address] Assigned Gastroenterology Provider 04/01/23 07/28/23 documented as of this encounter
--- OUTSIDE RECORDS SUMMARY | 2023-09-14 06:28 | XMS_ITS | Encounter Summary ---
Author Organization [facility] Address [address] [place] [address] Care Team Providers Care Mine Boss Name Role Phone Bette Olmos-C Unavailable +- [phone] Bette Olmos-Hiram Unavailable + [phone] Jessie Ashraf-C Unavailable + [phone] Dada Schultz DO Primary Care Provider [phone] Dada Schultz DO Unavailable [phone] Carolina Hancock-C Unavailable [phone] Encounter Details Date Type Department Care Team (Late st Contact Info) Description 12/25/2022 My[facility] Medical Advice [address] [address] Rylie Powell, STEEL FLOOR PAN PLACING SUPERVISOR Social History Tobacco Use Types Packs/Day Years [...] 2022 How often do you attend chur ch or jainism services? Never 2022 Do you belong to any clubs o r organizations such as presybeterian groups, unions, fraternal or athletic groups, or [...] more drinks on one occasion? Never 2022 Overall Financial Resource Strain (CARDIA) Answe r Date Recorded How hard is it for you to pa y for the very basics like food, housing, medical care, and heating? Not very hard 2022 PHQ-2 Answer Date Recorded PHQ-2 Score 4 12/25/2022 [facility] [place] [facility] Occupat ional Health - Occupational Stress [...] exercise at this level? 30 min 2022 Hunger Vital Sign Answer Date Recorded Within the past 12 months, y ou worried that your food would run out before you got the money to buy more. Never true 08/29/19 Within the past 12 months, t he food you bought just didn't last and you didn't have money to get more. Never true 2022 PRAPARE - Transportation Answer Date Re corded In the past 12 months, has l ack of transportation kept you from medical appointments or from getting medications? No 08/07 In the past 12 months, has l ack of transportation kept you from meetings, work, or from getting things needed for daily living? No 2022 Housing Stability Vital Sign Answer Gabriel e Recorded In the last 12 months, was t here a time when you were not able to pay the mortgage or rent on time? Yes 2022 In the last 12 months, how many places have you lived? 1 2022 In the last 12 months, was t here a time when you did not have a steady place to sleep or slept in a prison (including now)? No 2022 Adolescent Education Answer Date Record ed Getting School Help Needed Not on file 11/27 Sex and Gender Information Value Date Recorded Sex Assigned at Female 11/25/2020 10:59 AM CDT Gender Identity Female 11/25/2020 10:59 AM CDT Sexual Orientation Fritz 11/19/2022 11 :19 PM CDT documented as of this encounter Plan of Treatment Not on file documented as of this encounter Visit Diagnoses Not on filedocumented in this encounter Additional Health Concerns Assessment Noted Time PHQ-9 Depression Total Score: 14 023 11:21 AM CDT documented as of this encounter Care Teams Mine Boss Relationship Specialty [place] [address] [place] [address] PCP - General Family Medicine 01/01/22 Bette Olmos PA-C [address] [place] [address] Physician Weight Reduction Specialist Gastroenterology 06/30/21 Bette Olmos PA-C [address] [place] [address] [id number] Physician Weight Reduction Specialist Gastroenterology 06/30/21 Jessie Ashraf PA-C [address] [id number] Assigned Sleep Provider 08/30/21 [place] [address] [place] [address] Assigned PCP 05/09/22 Carolina Hancock PA-C [facility] [place] [address] Assigned Gastroenterology Provider 04/01/23 07/28/23 documented as of this encounter
--- OUTSIDE RECORDS SUMMARY | 2023-09-14 06:28 | XMS_ITS | Encounter Summary ---
Author Organization [facility] Address [address] [place] [address] Care Team Providers Care Metal Gauge Maker Name Role Phone Zak Lin MD Unavailable Arturo Cruz MD Unavailable [phone] Bette Olmos PA-C Unavailable + [phone] Bette Olmos PA-C Unavailable + [phone] Jessie Ashraf PA-C Unavailable +[phone] Dada Schultz DO Primary Care Provider [phone] Dada Schultz DO Unavailable [phone] Carolina Hancock PA-C Unavailable [phone] Encounter Details Date Type Department Care Team (Late st Contact Info) Description 07/23/2022 MyC Medical Advice [address] [address] Rylie Powell, CHANGE DIRECTOR Social History Tobacco Use Types Packs/Day Years [...] week 08/20/2021 How often do you attend [facility] or amish services? Never 08/20/2021 Do you belong to any clubs o r organizations such as confucianism groups, unions, fraternal or athletic groups, or [...] PHQ-2 Answer Date Recorded PHQ-2 Score 2 07/09/2022 Exercise Vital Sign Answer Date Recorde d [...] In the last 10 days, have anya u been in contact with someone who was confirmed or suspected to have Coronavirus/COVID-19? No / Unsure 07/09/2022 1:44 PM CDT documented as of this encounter Plan of Treatment Not on file documented as of this encounter Visit Diagnoses Not on filedocumented in this encounter Additional Health Concerns Assessment Noted Time PHQ-9 Depression Total Score: 13 023 1:43 PM CDT documented as of this encounter Care Teams Metal Gauge Maker Relationship Specialty [place] [address] [place] [address] PCP - General Family Medicine 01/01/22 [place] [address] [address] Assigned Musculoskeletal Provider 04/27/21 12/11/22 Arturo Cruz MD 909 [place], [place] 192675 Assigned Neuroscience Provider 06/08/21 11/27/22 Bette Olmos PA-C 9 [place], [place] 941185 Physician Duplicating Machine Operator Gastroenterology 06/30/21 Bette Olmos PA-C 9 [place] [address] Physician Duplicating Machine Operator Gastroenterology 06/30/21 Jessie Ashraf PA-C [address] [address] Assigned Sleep Provider 08/30/21 [place] [address] [place] [address] Assigned PCP 05/09/22 Carolina Hancock PA-C [address] [place] [address] Assigned Gastroenterology Provider 04/01/23 07/28/23 documented as of this encounter
--- OUTSIDE RECORDS SUMMARY | 2023-09-14 06:28 | XMS_ITS | Encounter Summary ---
Author Organization [facility] Address [address] [place] [address] Care Team Providers Care Manager Dairy Name Role Phone Zak Lin MD Unavailable Arturo Cruz MD Unavailable [phone] Bette Olmos PA-C Unavailable + [phone] Bette Olmos PA-C Unavailable + [phone] Jessie Ashraf PA-C Unavailable [phone] Dada Schultz DO Primary Care Provider [phone] Dada Schultz DO Unavailable [phone] Carolina Hancock PA-C Unavailable [phone] Encounter Details Date Type Department Care Team (Late st Contact Info) Description 06/24/2022 MyC Medical Advice [facility] [address] [place] [address] [place] [id number] [place] [address] [id number] Social History Tobacco Use Types Packs/Day Years [...] often do you attend chur ch or episcopal services? Never 08/20/2021 Do you belong to any clubs o r organizations such as islam groups, unions, fraternal or athletic groups, or [...] encounter Miscellaneous Notes * Telephone Encounter - Suzy Blakely RN - 06/25/2022 7:[address] Schultz: Please contact patient and tried to arrange for a preoperative exam by me using one of my reserved appointment times if needed, or schedule with other provider if I am not available. * Telephone Encounter - Dada Schultz DO - 06/24/2022 5:59 PM CDT Patient message from today reviewed. We will try to get her appointment prior to her scheduled surgery. documented in this encounter Plan of Treatment Not on file documented as of this encounter Visit Diagnoses Not on filedocumented in this encounter Additional Health Concerns Assessment Noted Time PHQ-9 Depression Total Score: 14 023 2:01 PM BLIND HANGER documented as of this encounter Care Teams Manager Dairy Relationship Specialty [place] [address] [place] [address] PCP - General Family Medicine 01/01/22 [place] [address] [place] [address] Assigned Musculoskeletal Provider 04/27/21 12/11/22 Arturo Cruz MD [address] [place] [address] Assigned Neuroscience Provider 06/08/21 11/27/22 Bette Olmos PA-C [address] [place] [address] Physician Core Microarchitect Gastroenterology 06/30/21 Bette Olmos PA-C [address] [place] [address] Physician Core Microarchitect Gastroenterology 06/30/21 Jessie Ashraf PA-C [address] [address] Assigned Sleep Provider 08/30/21 [place] [address] [place] [address] Assigned PCP 05/09/22 Carolina Hancock PA-C 2450 [place] [address] Assigned Gastroenterology Provider 04/01/23 07/28/23 documented as of this encounter
--- OUTSIDE RECORDS SUMMARY | 2023-09-14 06:28 | XMS_ITS | Encounter Summary ---
Author Organization [facility] Address [address] [place] [address] Care Team Providers Care Pattern Finisher Name Role Phone Zak Lin MD Unavailable Arturo Cruz MD Unavailable [phone] Bette Olmos PA-C Unavailable + [phone] Bette Olmos PA-C Unavailable + [phone] Jessie Ashraf PA-C Unavailable [phone] Dada Schultz DO Primary Care Provider Dada Schultz DO Unavailable [phone] Carolina Hancock PA-C Unavailable [phone] Encounter Details Date Type Department Care Team (Late st Contact Info) Description 06/21/2022 [facility] Medical Advice [facility] [address] [place] [address] Jessie Ashraf PA-C [address] 925255 Social History Tobacco Use Types Packs/Day Years [...] often do you attend chur ch or methodist services? Never 08/20/2021 Do you belong to any clubs o r organizations such as taoism groups, unions, fraternal or athletic groups, or [...] Depression Total Score: 14 023 2:01 PM RUBBER TURNER documented as of this encounter Care Teams Pattern Finisher Relationship Specialty [place] [address] [place] [address] PCP - General Family Medicine 01/01/22 [place] [address] [address] Assigned Musculoskeletal Provider 04/27/21 12/11/22 Arturo Cruz MD [address] [place] [address] Assigned Neuroscience Provider 06/08/21 11/27/22 Bette Olmos PA-C 9 [place] [address] Physician Radio Aerial Installer Gastroenterology 06/30/21 Bette Olmos PA-C [address] [place] [address] Physician Radio Aerial Installer Gastroenterology 06/30/21 Jessie Ashraf PA-C [address] [place] [address] Assigned Sleep Provider 08/30/21 [place] [address] [place] [address] Assigned PCP 05/09/22 Carolina Hancock PA-C [address] [place] [address] Assigned Gastroenterology Provider 04/01/23 07/28/23 documented as of this encounter
--- OUTSIDE RECORDS SUMMARY | 2023-09-14 06:28 | XMS_ITS | Encounter Summary ---
Author Organization [facility] Address [address] [place] [address] Care Team Providers Care Special Weapons Unit Officer Name Role Phone Zak Lin MD Unavailable Arturo Cruz MD Unavailable [phone] Bette Olmos PA-C Unavailable + [phone] Bette Olmos PA-C Unavailable + [phone] Jessie Ashraf PA-C Unavailable [phone] Dada Schultz DO Primary Care Provider [phone] Dada Schultz DO Unavailable [phone] Carolina Hancock PA-C Unavailable [phone] Encounter Details Date Type Department Care Team (Late st Contact Info) Description 10/13/2022 [facility] [address] [address] Eve Vaughan, DIANA Social History Tobacco Use Types Packs/Day Years [...] week 2022 How often do you attend [facility] or baptism services? Never 2022 Do you belong to any clubs o r organizations such as caodaism groups, unions, fraternal or athletic groups, or [...] 2022 PHQ-2 Answer Date Recorded PHQ-2 Score 1 09/15/2022 [facility] Occup[facility] ional Health - Occupational Stress [...] place to sleep or slept in a correction (including now)? No 2022 Sex and Gender Information Value Date Recorded Sex Assigned at Female 11/25/2020 10:59 AM CDT Gender Identity Female 11/25/2020 10:59 AM CDT Sexual Orientation Fritz 11/19/2022 11 :19 PM CDT COVID-19 Exposure Response Date Recorded In the last 10 days, have yo u been in contact with someone who was confirmed or suspected to have Coronavirus/COVID-19? No / Unsure 10/11/2022 8:43 AM CDT documented as of this encounter Plan of Treatment Not on file documented as of this encounter Visit Diagnoses Not on filedocumented in this encounter Additional Health Concerns Assessment Noted Time PHQ-9 Depression Total Score: 11 023 3:40 PM CDT documented as of this encounter Care Teams Special Weapons Unit Officer Relationship Specialty [place] [address] [place] [address] PCP - General Family Medicine 01/01/22 [place] [address] [address] Assigned Musculoskeletal Provider 04/27/21 12/11/22 Arturo Cruz MD [address] [place] [address] [id number] Assigned Neuroscience Provider 06/08/21 11/27/22 Bette Olmos PA-C 909 [place] [address] Physician Staff Midwife Gastroenterology 06/30/21 Bette Olmos PA-C 909 [place] [address] Physician Staff Midwife Gastroenterology 06/30/21 Jessie Ashraf PA-C [address] [address] Assigned Sleep Provider 08/30/21 [place] [address] [place] [address] Assigned PCP 05/09/22 Carolina Hancock PA-C 2450 [place] [address] Assigned Gastroenterology Provider 04/01/23 07/28/23 documented as of this encounter
--- OUTSIDE RECORDS SUMMARY | 2023-09-14 06:28 | XMS_ITS | Clinical Summary ---
Author Organization [facility] Address [address] [place] [address] Care Team Providers Care Data Management Name Role Phone Bette Olmos PA-C Unavailable [phone] Bette Olmos PA-C Unavailable +- [phone] Jessie Ashraf PA-C Unavailable [phone] Dada Schultz DO Primary Care Provider [phone] Dada Schultz DO Unavailable [phone] Allergies No known active allergies Medications Medication Sig Dispensed Refills Start Date End Date Status levonorgestrel (MIRENA) 20 MCG/DAY IUD 1 each by Intrauterine route once Active cetirizine (ZYRTEC) 10 MG tablet Take 10 mg by mouth Active vitamin D3 (CHOLECALCIFEROL) 50 mcg (2000 units) tabletIndications: Vitamin D deficiency Take 1 tablet (50 mcg) by mouth daily 90 tablet 4 04/27/2022 Active Additional Information Patient not taking.Reported on 06/25/2023 ondansetron (ZOFRAN ODT) 4 MG ODT tabIndications:Gas troesophageal reflux disease with esophagitis without hemorrhage Take 1 tablet (4 mg) by mouth every 12 hours as needed for nausea 60 tablet 1 06/25/2023 Active FLUoxetine (PROZAC) 20 MG capsuleIndications :Moderate major depression (H) Take 3 capsules (60 mg) by mouth daily 270 capsule 06/25/2023 Active pantoprazole (PROTONIX) 20 MG EC tabletIndications: Gastroesophageal reflux disease with esophagitis without hemorrhage Take 1 tablet (20 mg) by mouth daily Take once daily 30-60 minutes before meal 90 tablet 06/25/2023 Active Active Problems Problem Noted Date Diagnosed Date Psychophysiological insomnia 06/13/2021 Complex regional pain syndro me type 1 of right upper extremity 06/13/2021 Current moderate episode of major depressive disorder without prior episode 01/09/2021 Gastroesophageal reflux disease with esophagitis 08/26/2017 Aimee's thyroiditis 04/30/2017 Anxiety 04/30/2017 Chronic urticaria 04/01/2017 Resolved Problems Problem Noted Date Diagnosed Date Resolved Date Acute pain of right shoulder 03/17/2021 06/13/2021 Encounters Date Type Department Care Team Description 07/19/2023 1:45 PM CDT E-Visit [facility] [address] [address] Ricarda Mcneil MD Cough (Entered automatically based on galdino... 06/25/2023 1:00 PM CDT Virtual Visit [address] [address] Dada Schultz DO Ankle fracture, right, closed, initial encounter (Primary Dx); Gastroesophageal reflux disease with esophagitis without hemorrhage; Moderate major depression (H) 06/21/2023 My[facility] Medical Advice [address] [address] Dada Schultz DO from Last 3 Months Immunizations Name Administration Dates Next Due COVID-19 Bivalent 12+ (Pfizer) 12/31/2021 COVID-19 MONOVALENT 12+ (Pfizer) 03/03/2021 DTAP (<7y) 11/06/1999 DTP-Hib 08/19/1995 Dtap, 5 Pertussis Antigens (DAPTACEL) 11/06/1999 HPV9 03/22/2018,08/26/2017,07/15/2017 Influenza Vaccine >6 months,quad, PF 03/22/2018 MMR 11/06/1999,08/19/1995 MMR/V 09/16/2006 Meningococcal ACWY (Menactra??) 09/16/2006 OPV, trivalent, live 08/19/1995,03/04/19 95,01/01/1995,11/02 Poliovirus, inactivated (IPV) 09/16/2006 TDAP (Adacel,Boostrix) 09/16/2006 TDAP Vaccine (Adacel) 06/29/2017 Varicella 11/06/1999 Family History Medical History Relation Comments Anxiety Disorder Father Depression Father Diabetes Father Anxiety Disorder Other Depression Other Breast Cancer Paternal Grandmother Relation Status Comments Father Alive Mother Alive Other Paternal Grandmother Social History Tobacco Use Types Packs/Day Years Used Date Smoking Tobacco: Never Smokeless Tobacco: Never Tobacco Cessation:Counseling Given: Not Answered Alcohol Use Standard Drinks/Week Comments Never 0 [...] How often do you attend chur or episcopalian services? Never 2022 Do you belong to any clubs o r organizations such as roman catholic groups, unions, fraternal or athletic groups, or [...] Answer Date Recorded PHQ-2 Score 2 06/25/2023 [facility] - Occupational Stress Questionnaire [...] Answer Date Recorded Do you have housing? (Lucila blair is defined as stable permanent housing and does not include staying ouside in a car, in a tent, in an abandoned building, in an overnight fpc, or couch-surfing.) Yes 02/05/2023 Are you worried [...] Orientation Fritz 11/19/2022 11 :19 PM CDT Last Filed Vital Signs Vital Sign Reading Time Taken Comments Blood Pressure 124/82 09/15/2022 1:30 PM CDT Pulse 80 09/15/2022 1:30 PM CDT Temperature 36.8 ??C (98.2 ??F) 09/15/2022 1:30 PM CD T Respiratory Rate 21 09/15/2022 1:30 PM CDT Oxygen Saturation 100% 09/15/2022 1:30 PM CDT Inhaled Oxygen Concentration - - Weight 79.4 kg (175 lb) 01/26/2023 2:14 PM PATIENT NAVIGATOR Height 160 cm (5' 3) 01/26/2023 2:14 PM PATIENT NAVIGATOR Body Mass Index 31 01/26/2023 2:14 PM PATIENT NAVIGATOR Plan of Treatment Health Maintenance Due Date Last Done Comments COVID-19 Vaccine ( season) 2022 12/31/2021, 03/03/2021, 07/23/2020, Additional history exists ANNUAL REVIEW OF HM ORDERS 04/27/2023 04/27/2022 YEARLY PREVENTIVE VISIT 04/27/2023 04/27/2022, 07/15 INFLUENZA VACCINE (#1) 2023 03/22/2018 PHQ-9 12/25/2023 06/25/2023, 12/07, 09/15/2022, Additional history exists PAP 08/05/2024 08/05/2021, 07/08, 08/03/2021, Additional history exists DTAP/TDAP/TD IMMUNIZATION (5 - Td or Tdap) 06/30/2027 06/29/2017, 09/16/2006, 11/06/1999, Additional history exists ADVANCE CARE PLANNING 09/16/2027 09/15/2022 , 12/31/2021, 09/22/2021, Additional history exists IPV IMMUNIZATION Completed 09/16/2006, , 03/04/1995, Additional history exists MENINGITIS IMMUNIZATION Aged Out 09/16/2006 No l onger eligible based on patient's age to complete this topic DEPRESSION ACTION PLAN Completed 03/18/2018, 2018 HPV IMMUNIZATION Completed 03/22/2018, , 07/15/2017 CHLAMYDIA SCREENING Discontinued 08/05/2021, 08/05/2021, 09/28/2017, Additional history exists HEPATITIS B IMMUNIZATION Discontinued HEPATITIS C SCREENING Discontinued HIV SCREENING Discontinued Pneumococcal Vaccine: Pediatrics (0 to 5 Years) and At-Risk Patients (6 to 64 Years) Aged Out No longer eligible based on patient's age to complete this topic RSV MONOCLONAL ANTIBODY Aged Out No l onger eligible based on patient's age to complete this topic Procedures Procedure Name Priority Date/Time Associated Diagnosis Comments PAP SMEAR - HIM PATIENT REPORTED Routine 08/03/2021 CHLAMYDIA TRACHOMATIS PCR Routine 09/28/2017 11:26 AM CDT Unprotected sexual intercourse from Last 3 Months or Most Recently Relevant to Health Maintenance Results * PAP Smear - HIM Patient Reported (08/03/2021) PAP Smear - HIM Patient Reported Negative EXTERNAL LAB 08/03/2021 Narrative EXTERNAL LAB - 08/03/2021 Starr Marmolejo PA-C ??P Abstract Quality Initiatives Pap done at OB on 08/03/21, NIL pt reported Patient Reported LABORATORY EXTERNAL LAB External Lab * Chlamydia trachomatis PCR (09/28/2017 11:26 AM CDT) Specimen Description Vagina 09/28/2017 11:27 AM CDT [facility] Chlamydia Trachomatis PCR Negative NEG^Negat peggy 09/29/2017 1:30 PM CDT [facility] Comment: Negative for C. trachomatis rRNA by orange peel operator mediated amplification. A negative result by orange peel operator mediated amplification does not preclude the presence of C. trachomatis infection because results are dependent on proper and adequate collection, absence of inhibitors, and sufficient rRNA to be detected. Specimen from vagina (specimen) 09/28/2017 11:26 AM CDT 09/28/2017 11:27 AM CDT Tonya Hartman MD LAB - MICRO GENER AL ORDERABLES Performing Organization Address City/[facility]/ZIP Co de Phone Number [facility] [address] [place], [place] [id number] [place] [address] [place] [address] from Last 3 Months or Most Recently Relevant to Health Maintenance Care Teams Data Management Relationship Specialty [place] [address] [place] [address] PCP - General Family Medicine 01/01/22 Bette Olmos PA-C [address] [place], [place] 310475 Physician Ground Crew Lines Person Gastroenterology 06/30/21 Bette Olmos PA-C [address] [place] [address] 945695 Physician Ground Crew Lines Person Gastroenterology 06/30/21 Jessie Ashraf PA-C [address] [address] Assigned Sleep Provider 08/30/21 [place] [address] [place] [address] Assigned PCP 05/09/22
--- OUTSIDE RECORDS SUMMARY | 2023-09-14 06:28 | XMS_ITS | Encounter Summary ---
Author Organization [facility] Address [address] [place] [address] Care Team Providers Care Fermentation Operator Name Role Phone Bette Olmos PA-C Unavailable +- [phone] Bette Olmos-C Unavailable + [phone] Jessie Ashraf PA-C Unavailable + [phone] Dada Schultz DO Primary Care Provider [phone] Dada Schultz DO Unavailable [phone] Carolina Hancock PA-C Unavailable [phone] Reason for Visit * Reason Comments Cough Entered automaticall y based on patient selection in [facility]. Encounter Details Date Type Department Care Team (Late st Contact Info) Description 07/19/2023 1:45 PM CDT E-Visit [facility] [address] [address] [place] [address] [place], [place] [id number] Cough (Entered automatically based on galdino... Social History Tobacco Use Types Packs/Day Years [...] often do you attend chur ch or voodoo services? Never 2022 Do you belong to any clubs o r organizations such as hoahaoism groups, unions, fraternal or athletic groups, or [...] Answer Date Recorded PHQ-2 Score 2 06/25/2023 [facility] - Occupational [...] in an abandoned building, in an overnight mcc, or couch-surfing.) Yes 02/05/2023 Are you worried [...] this encounter Patient Instructions * Patient Instructions* Ricarda Mcneil MD - 07/19/2023 1:45 PM CDT Dear Shine Mary, We are sorry you are not feeling well. Based on the responses you provided, it is recommended that you be seen in-person in urgent care so we can better evaluate your symptoms. Please click here to find the nearest urgent care location to you. You will not be charged for this Visit. Thank you for trusting us with your care. Ricarda Mcneil MD documented in this encounter Miscellaneous Notes * Telephone Encounter - Ricarda Mcneil MD - 07/19/2023 1:50 PM CDT Provider E-Visit time total (minutes): 5 documented in this encounter Plan of Treatment Not on file documented as of this encounter Visit Diagnoses Diagnosis Wheezing- Primary documented in this encounter Additional Health Concerns Assessment Noted Time PHQ-9 Depression Total Score: 11 04/2 024 1:48 PM CDT documented as of this encounter Care Teams Fermentation Operator Relationship Specialty [place] [address] [place] [address] PCP - General Family Medicine 01/01/22 Bette Olmos PA-C 909 [place], [place] 116775 Physician Panama Hat Hydraulic Press Operator Gastroenterology 06/30/21 Bette Olmos PA-C 909 [place], [place] 884565 Physician Panama Hat Hydraulic Press Operator Gastroenterology 06/30/21 Jessie Ashraf PA-C [address] 231705 Assigned Sleep Provider 08/30/21 [place] [address] [place] [address] Assigned PCP 05/09/22 Carolina Hancock PA-C [facility] [place], [place] [address] Assigned Gastroenterology Provider 04/01/23 07/28/23 documented as of this encounter
--- OUTSIDE RECORDS SUMMARY | 2023-09-14 06:28 | XMS_ITS | Referral Summary ---
Author Organization [facility] Address [address] [place] [address] Care Team Providers Care Supervisor Cab Name Role Phone Bette Olmos PA-C Unavailable + [phone] Bette Olmos PA-C Unavailable + [phone] Jessie Ashraf PA-C Unavailable +[phone] Daad Schultz DO Primary Care Provider [phone] Dada Schultz DO Unavailable [phone] Encounters Date Type Department Care Team Description 07/19/2023 1:45 PM CDT E-Visit [facility] [address] [address] Ricarda Mcneil MD Cough (Entered automatically based on galdino... 06/25/2023 1:00 PM CDT Virtual Visit [facility] [address] [place] [address] Dada Schultz DO Ankle fracture, right, closed, initial encounter (Primary Dx); Gastroesophageal reflux disease with esophagitis without hemorrhage; Moderate major depression (H) 06/21/2023 MyC Medical Advice [facility] [address] [place] [phone] Dada Schultz DO from Last 3 Months Allergies No known active allergies Medications Medication [...] Acute pain of right shoulder 03/17/2021 06/13/2021 Immunizations Name Administration Dates Next Due COVID-19 Bivalent 12+ (Pfizer) 12/31/2021 COVID-19 MONOVALENT 12+ (Pfizer) 03/03/2021 DTAP (<7y) 11/06/1999 DTP-Hib 08/19/1995 Dtap, 5 Pertussis Antigens (DAPTACEL) 11/06/1999 HPV9 03/22/2018,08/26/2017,07/15/2017 Influenza Vaccine >6 months,quad, PF 03/22/2018 MMR 11/06/1999,08/19/1995 MMR/V 09/16/2006 Meningococcal ACWY (Menactra??) 09/16/2006 OPV, trivalent, live 08/19/1995,03/04/19 95,01/01/1995,11/02 Poliovirus, inactivated (IPV) 09/16/2006 TDAP (Adacel,Boostrix) 09/16/2006 TDAP Vaccine (Adacel) 06/29/2017 Varicella 11/06/1999 Social History Tobacco Use Types Packs/Day Years [...] week 2022 How often do you attend [facility] or hinduism services? Never 2022 Do you belong to any clubs o r organizations such as oriental orthodox groups, unions, fraternal or athletic groups, [...] Answer Date Recorded PHQ-2 Score 2 06/25/2023 [facility] Questionnaire [...] 79.4 kg (175 lb) 01/26/2023 2:14 PM RETAIL SPECIALIST Height 160 cm (5' 3) 01/26/2023 2:14 PM RETAIL SPECIALIST Body Mass Index 31 01/26/2023 2:14 PM RETAIL SPECIALIST Plan of Treatment Not on file Procedures Procedure Name Priority Date/Time Associated Diagnosis [...] 08/03/21, NIL pt reported Patient Reported LABORATORY Performing Organization Address City/[facility]/ZIP Co de Phone Number EXTERNAL LAB External Lab * Chlamydia trachomatis PCR (09/28/2017 11:26 AM CDT) Specimen Description Vagina 09/28/2017 11:27 AM CDT [facility] Chlamydia Trachomatis PCR Negative NEG^Negat peggy 09/29/2017 1:30 PM CDT [facility] Comment: Negative for C. trachomatis rRNA by shake loader mediated amplification. A negative result by shake loader mediated amplification does not preclude the presence of C. trachomatis infection because results are dependent on proper and adequate collection, absence of inhibitors, and sufficient rRNA to be detected. Specimen from vagina (specimen) 09/28/2017 11:26 AM CDT 09/28/2017 11:27 AM CDT Tonya Hartman MD LAB - MICRO GENER AL ORDERABLES [facility] [address] [place], [place] [address] [place] [address] [place] [address] from Last 3 Months or Most Recently Relevant to Health Maintenance Care Teams Supervisor Cab Relationship Specialty [place] [address] [place] [address] PCP - General Family Medicine 01/01/22 Bette Olmos PA-C 909 [place], [place] 580705 Physician Tie In Hand Gastroenterology 06/30/21 Bette Olmos PA-C 909 [place], [place] 593805 Physician Tie In Hand Gastroenterology 06/30/21 Jessie Ashraf PA-C [address] [address] Assigned Sleep Provider 08/30/21 [place] [address] [address] [place] [address] Assigned PCP 05/09/22
--- OUTSIDE RECORDS SUMMARY | 2023-09-14 06:29 | XMS_ITS | Encounter Summary ---
Author Organization [facility] Address [address] [place] [address] Care Team Providers Care Chemical Plant Operator Name Role Phone Tonya Hartman MD Primary Care Provider [phone] Tonya Hartman MD Unavailable [phone] Zak Lin MD Unavailable Arturo Cruz MD Unavailable +[phone] Bette Olmos PA-C Unavailable + [phone] Bette Olmos PA-C Unavailable + [phone] Jessie Ashraf PA-C Unavailable +[phone] Dada Schultz DO Primary Care Provider [phone] Ddaa Schultz DO Unavailable [phone] Carolina Hancock PA-C Unavailable [phone] Encounter Details Date Type Department Care Team (Late st Contact Info) Description 06/19/2021 [facility] [address] [place] [address] Daylin Lyon Social History Tobacco Use Types Packs/Day Years Used Date Smoking Tobacco: Never Smokeless Tobacco: Never Alcohol Use Standard Drinks/Week Comments No 0 (1 standard drink = 0.6 oz pur e alcohol) AUDIT-C Answer Date Recorded Frequency of Alcohol Consumption Never 03/18/2018 Average Number of Drinks Not on file 019 Frequency of Binge Drinking Not on file 03/08 PHQ-2 Answer Date Recorded PHQ-2 Total Score (Adult) - Positive if 3 or more points; Administer PHQ-9 if positive 2 06/10/2021 Sex and Gender Information Value Date Recorded Sex Assigned at Female 11/25/2020 10:59 AM CDT Gender Identity Female 11/25/2020 10:59 AM CDT Sexual Orientation Fritz 11/19/2022 11 :19 PM CDT COVID-19 Exposure Response Date Recorded In the last month, have you been in contact with someone who was confirmed or suspected to have Coronavirus / COVID-19? No / Unsure 06/10/2021 6:44 PM CDT documented as of this encounter Plan of Treatment Not on file documented as of this encounter Visit Diagnoses Not on filedocumented in this encounter Additional Health Concerns Assessment Noted Time PHQ-9 Depression Total Score: 12 022 12:49 PM CDT documented as of this encounter Care Teams Chemical Plant Operator Relationship Specialty [place] [address] [place] [address] PCP - General Family Practice 04/01/17 12/31/21 [place] [address] [place] [address] PCP - General Family Medicine 01/01/22 [place] [address] [place] [address] Assigned PCP 03/11/17 05/08/22 [place] [address] [place] [address] Assigned Musculoskeletal Provider 04/27/21 12/11/22 Arturo Cruz MD [address] [place] [address] Assigned Neuroscience Provider 06/08/21 11/27/22 Bette Olmos PA-C 909 [place], [place] 045975 Physician Attorney General Gastroenterology 06/30/21 Bette Olmos PA-C 9 [place], [place] [address] Physician Attorney General Gastroenterology 06/30/21 Jessie Asrhaf PA-C [address] 397775 Assigned Sleep Provider 08/30/21 [place] [address] [place], [place] 4759[address] Assigned PCP 05/09/22 Carolina Hancock PA-C 2450 [place], [place] [address] Assigned Gastroenterology Provider 04/01/23 07/28/23 documented as of this encounter
--- OUTSIDE RECORDS SUMMARY | 2023-09-14 06:29 | XMS_ITS | Encounter Summary ---
Author Organization [facility] Address [address] [place] [address] Care Team Providers Care Molded Parts Inspector Name Role Phone Tonya Hartman MD Primary Care Provider [phone] Tonya Hartman MD Unavailable +[phone] Zak Lin MD Unavailable Arturo Cruz MD Unavailable +[phone] Bette Olmos PA-C Unavailable + [phone] Bette Olmos PA-C Unavailable + [phone] Jessie Ashraf PA-C Unavailable +[phone] Dada Schultz DO Primary Care Provider [phone] Dada Schultz DO Unavailable [phone] Carolina Hancock PA-C Unavailable [phone] Encounter Details Date Type Department Care Team (Late st Contact Info) Description 10/10/2021 [facility] [address] [place] [address] Christel Hernadez RN Social History Tobacco Use Types Packs/Day [...] 08/20/2021 How often do you attend chur or denominational services? Never 08/20/2021 Do you belong to any clubs o r organizations such as holiness groups, unions, fraternal or athletic groups, or [...] 08/20/2021 PHQ-2 Answer Date Recorded PHQ-2 Score 3 08/26/2021 Exercise Vital Sign Answer Date Recorde d [...] suspected to have Coronavirus/COVID-19? No / Unsure 09/22/2021 8:42 AM CDT documented as of this encounter Plan of Treatment Not on file documented as of this encounter Visit Diagnoses Not on filedocumented in this encounter Additional Health Concerns Assessment Noted Time PHQ-9 Depression Total Score: 14 022 7:48 AM CDT documented as of this encounter Care Teams Molded Parts Inspector Relationship Specialty [place] [address] [place] [address] PCP - General Family Practice 04/01/17 12/31/21 [place] [address] [place] [address] PCP - General Family Medicine 01/01/22 [place] [address] [place] [address] Assigned PCP 03/11/17 05/08/22 [place] [address] [place] [address] [place] [address] Assigned Musculoskeletal Provider 04/27/21 12/11/22 Arturo Cruz MD [address] [place] [address] Assigned Neuroscience Provider 06/08/21 11/27/22 Bette Olmos PA-C 909 [place] [address] Physician Sociology Faculty Member Gastroenterology 06/30/21 Bette Olmos PA-C [address] [place] [address] Physician Sociology Faculty Member Gastroenterology 06/30/21 Jessie Ashraf PA-C [address] [address] Assigned Sleep Provider 08/30/21 [place] [address] [place] [address] Assigned PCP 05/09/22 Carolina Hancock PA-C 2450 [place] [address] Assigned Gastroenterology Provider 04/01/23 07/28/23 documented as of this encounter
--- OUTSIDE RECORDS SUMMARY | 2023-09-14 06:29 | XMS_ITS | Encounter Summary ---
Author Organization [facility] Address [address] [place] [address]. [place] [address] Care Team Providers Care Gymnastic Teacher Name Role Phone Tonya Hartman MD Primary Care Provider [phone] Tonya Hartman MD Unavailable +[phone] Zak Lin MD Unavailable Arturo Cruz MD Unavailable +[phone] Bette Olmos PA-C Unavailable + [phone] Bette Oloms PA-C Unavailable + [phone] Jessie Ashraf-Hiram Unavailable +[phone] Dada Schultz DO Primary Care Provider [phone] Dada Schultz DO Unavailable [phone] Carolina Hancock-Hiram Unavailable [phone] Encounter Details Date Type Department Care Team (Late st Contact Info) Description 05/23/2021 [facility] [address] [place] [address] [place] [address] [place] [address] Social History Tobacco Use Types Packs/Day [...] more points; Administer PHQ-9 if positive 2 04/15/2021 Sex and Gender Information Value Date Recorded Sex Assigned at Female 11/25/2020 10:59 AM CDT Gender Identity Female 11/25/2020 10:59 AM CDT Sexual Orientation Fritz 11/19/2022 11 :19 PM CDT COVID-19 Exposure Response Date Recorded In the last month, have you been in contact with someone who was confirmed or suspected to have Coronavirus / COVID-19? No / Unsure 05/23/2021 2:24 PM CDT documented as of this encounter Plan of Treatment Not on file documented as of this encounter Visit Diagnoses Not on filedocumented in this encounter Additional Health Concerns Assessment Noted Time PHQ-9 Depression Total Score: 11 022 7:02 AM DIRECTOR PHONE documented as of this encounter Care Teams Gymnastic Teacher Relationship Specialty [place] [address] [place] [address] PCP - General Family Practice 04/01/17 12/31/21 [place] [address] [place] [address] PCP - General Family Medicine 01/01/22 [place] [address] [place] [address] Assigned PCP 03/11/17 05/08/22 [place] [address] [place] [address] Assigned Musculoskeletal Provider 04/27/21 12/11/22 Arturo Cruz MD 909 [place] [address] Assigned Neuroscience Provider 06/08/21 11/27/22 Bette Olmos PA-C [address] [place] [address] 915815 Physician Veterinary Livestock Inspector Gastroenterology 06/30/21 Bette Olmos PA-C [address] [place] [address] 337295 Physician Veterinary Livestock Inspector Gastroenterology 06/30/21 Jessie Ashraf PA-C [address] 866825 Assigned Sleep Provider 08/30/21 [place] [address] [place] [address] Assigned PCP 05/09/22 Carolina Hancock PA-C 2450 [place] [address] Assigned Gastroenterology Provider 04/01/23 07/28/23 documented as of this encounter
--- OUTSIDE RECORDS SUMMARY | 2023-09-14 06:29 | XMS_ITS | Encounter Summary ---
Author Organization [facility] Address [address] [place] [address] Care Team Providers Care Rehabilitation Physician Name Role Phone Tonya Hartman MD Unavailable [phone] Zak Lin MD Unavailable Arturo Cruz MD Unavailable +[phone] Bette Olmos PA-C Unavailable + [phone] Bette Olmos PA-C Unavailable + [phone] Jessie Ashraf PA-C Unavailable +[phone] Dada Schultz DO Primary Care Provider [phone] Dada Schultz DO Unavailable [phone] Carolina Hancock PA-C Unavailable [phone] Encounter Details Date Type Department Care Team (Late st Contact Info) Description 01/01/[address] [facility] [address] [place] [address] [place] [address] [place] [address] Social History Tobacco Use Types Packs/Day [...] week 08/20/2021 How often do you attend [facility] or zoroastrianism services? Never 08/20/2021 Do you belong to any clubs o r organizations such as temple groups, unions, fraternal or athletic groups, or [...] PHQ-2 Answer Date Recorded PHQ-2 Score 2 12/31/2021 Exercise Vital Sign Answer Date Recorde d [...] suspected to have Coronavirus/COVID-19? No / Unsure 12/31/2021 11:10 AM CDT documented as of this encounter Plan of Treatment Not on file documented as of this encounter Visit Diagnoses Not on filedocumented in this encounter Additional Health Concerns Assessment Noted Time PHQ-9 Depression Total Score: 9 01/01/20 7:44 AM CDT documented as of this encounter Care Teams Rehabilitation Physician Relationship Specialty [place] [address] [place] [address] PCP - General Family Medicine 01/01/22 [place] [address] [place] [address] Assigned PCP 03/11/17 05/08/22 [place] [address] [place] [address] [address] Assigned Musculoskeletal Provider 04/27/21 12/11/22 Arturo Cruz MD [address] [place] [address] Assigned Neuroscience Provider 06/08/21 11/27/22 Bette Olmos PA-C [address] [place] [address] 814715 Physician Business Support Liaison Gastroenterology 06/30/21 Bette Olmos PA-C 909 [place] [address] Physician Business Support Liaison Gastroenterology 06/30/21 Jessie Ashraf PA-C 6363 [facility] [address] [place] [address] Assigned Sleep Provider 08/30/21 [place] [address] [place] [address] Assigned PCP 05/09/22 Carolina Hancock PA-C 2450 [place] [address] Assigned Gastroenterology Provider 04/01/23 07/28/23 documented as of this encounter
--- OUTSIDE RECORDS SUMMARY | 2023-09-14 06:29 | XMS_ITS | Encounter Summary ---
Author Organization [facility] Address [address] [place] [address] Care Team Providers Care Foreign Student Adviser Name Role Phone Tonya Hartman MD Primary Care Provider [phone] Tonya Hartman MD Unavailable [phone] Tonya Hartman MD Unavailable +[phone] Zak Lin MD Unavailable Arturo Cruz MD Unavailable +[phone] Bette Olmos PA-C Unavailable + [phone] Bette Olmos PA-C Unavailable + [phone] Jessie Ashraf-Hiram Unavailable +[phone] Dada Schultz DO Primary Care Provider [phone] Dada Schultz DO Unavailable [phone] Carolina Hancock PA-C Unavailable [phone] Encounter Details Date Type Department Care Team (Late st Contact Info) Description 04/19/2018 [facility] [address] [place] [address] [place] [address] [place] [address] Social History Tobacco Use Types [...] file 03/08 PHQ-2 Answer Date Recorded PHQ-2 Score 3 03/16/2018 Sex and Gender Information Value Date Recorded [...] Noted Time PHQ-9 Depression Total Score: 13 019 1:05 PM RELAY OPERATOR documented as of this encounter Care Teams Foreign Student Adviser Relationship Specialty [place] [address] [place] [address] PCP - General Family Practice 04/01/17 12/31/21 [place] [address] [place] [address] PCP - Assigned PCP 03/11/17 05/10/18 [place] [address] [place] [address] PCP - General Family Medicine 01/01/22 [place] [address] [place] [address] Assigned PCP 03/11/17 05/08/22 [place] [address] [place] [address] Assigned Musculoskeletal Provider 04/27/21 12/11/22 Arturo Cruz MD [address] [place] [address] 799275 Assigned Neuroscience Provider 06/08/21 11/27/22 Bette Olmos PA-C [address] [place] [address] 799245 Physician Network Support Manager Gastroenterology 06/30/21 Bette Olmos PA-C [address] [place] [address] Physician Network Support Manager Gastroenterology 06/30/21 Jessie Ashraf PA-C [address] 336285 Assigned Sleep Provider 08/30/21 [place] [address] [address] [place], [place] 8[address]05[address] Assigned PCP 05/09/22 Carolina Hancock PA-C 2450 [place], [place] 848274 Assigned Gastroenterology Provider 04/01/23 07/28/23 documented as of this encounter
--- OUTSIDE RECORDS SUMMARY | 2023-09-14 06:29 | XMS_ITS | Encounter Summary ---
Author Organization [facility] Address [address] [place] [address]. [place] [address] Care Team Providers Care Skin Pass Operator Name Role Phone Tonya Hartman MD Primary Care Provider [phone] Tonya Hartman MD Unavailable [phone] Zak Lin MD Unavailable Arturo Cruz MD Unavailable +[phone] Bette Olmos PA-C Unavailable + [phone] Bette Olmos PA-C Unavailable + [phone] Jessie Ashraf PA-C Unavailable +[phone] Dada Schultz DO Primary Care Provider [phone] Dada Schultz DO Unavailable [phone] Carolina Hancock PA-C Unavailable [phone] Encounter Details Date Type Department Care Team (Late st Contact Info) Description 04/06/2021 [facility] [place] [address] [place] [address] Jez Rodriguez, PT [facility] [id number] [place] [address] Social History Tobacco Use Types Packs/Day [...] 03/08 PHQ-2 Answer Date Recorded PHQ-2 Score 5 03/03/2021 Sex and Gender Information Value Date Recorded Sex Assigned at Female 11/25/2020 10:59 AM CDT Gender Identity Female 11/25/2020 10:59 AM CDT Sexual Orientation Fritz 11/19/2022 11 :19 PM CDT COVID-19 Exposure Response Date Recorded In the last month, have you been in contact with someone who was confirmed or suspected to have Coronavirus / COVID-19? No / Unsure 03/31/2021 1:53 PM INFORMATION TECHNOLOGY OFFICER documented as of this encounter Plan of Treatment Not on file documented as of this encounter Visit Diagnoses Not on filedocumented in this encounter Additional Health Concerns Assessment Noted Time PHQ-9 Depression Total Score: 20 021 8:14 AM INFORMATION TECHNOLOGY OFFICER documented as of this encounter Care Teams Skin Pass Operator Relationship Specialty [place] [address] [place] [address] PCP - General Family Practice 04/01/17 12/31/21 [place] [address] [place] [address] PCP - General Family Medicine 01/01/22 [place] [address] [place] [address] Assigned PCP 03/11/17 05/08/22 [place] [address] [place] [address] Assigned Musculoskeletal Provider 04/27/21 12/11/22 Arturo Cruz MD 909 [place] [address] Assigned Neuroscience Provider 06/08/21 11/27/22 Bette Olmos PA-C 909 [place] [address] Physician Bitumen Plant Operator Gastroenterology 06/30/21 Bette Olmos PA-C 909 [place] [address] Physician Bitumen Plant Operator Gastroenterology 06/30/21 Jessie Ashraf PA-C [address] [address] Assigned Sleep Provider 08/30/21 [place] [address] [place] [address] Assigned PCP 05/09/22 Carolina Hancock PA-C [facility] [place] [address] Assigned Gastroenterology Provider 04/01/23 07/28/23 documented as of this encounter
--- OUTSIDE RECORDS SUMMARY | 2023-09-14 06:29 | XMS_ITS | Encounter Summary ---
Author Organization [place] Address [address] [place] [address]. [place] [address] Care Team Providers Care Cut Off Worker Name Role Phone Tonya Hartman MD Primary Care Provider [phone] Tonya Hartman MD Unavailable +[phone] Zak Lin MD Unavailable Arturo Cruz MD Unavailable +[phone] Bette Olmos PA-C Unavailable + [phone] Bette Olmos PA-C Unavailable + [phone] Jessie Ashraf-Hiram Unavailable +[phone] Dada Schultz DO Primary Care Provider [phone] Dada Schultz DO Unavailable [phone] Carolina Hancock-Hiram Unavailable [phone] Encounter Details Date Type Department Care Team (Late st Contact Info) Description 11/28/2019 [facility] [address] [place] [address] [place] [address] [place] [address] Social History Tobacco Use Types [...] Depression Total Score: 13 019 1:05 PM OPTOMETRIC COORDINATOR documented as of this encounter Care Teams Cut Off Worker Relationship Specialty [place] [address] [place] [address] PCP - General Family Practice 04/01/17 12/31/21 [place] [address] [place] [address] PCP - General Family Medicine 01/01/22 [place] [address] [place] [address] Assigned PCP 03/11/17 05/08/22 [place] [address] [place] [address] [address] Assigned Musculoskeletal Provider 04/27/21 12/11/22 Arturo Cruz MD 909 [place] [address] Assigned Neuroscience Provider 06/08/21 11/27/22 Bette Olmos PA-C 909 [place] [address] Physician Scanning Manager Gastroenterology 06/30/21 Bette Olmos PA-C [address] [place] [address] Physician Scanning Manager Gastroenterology 06/30/21 Jessie Ashraf PA-C [address] [address] Assigned Sleep Provider 08/30/21 [place] [address] [place] [address] Assigned PCP 05/09/22 Carolina Hancock PA-C 2450 [place] [address] Assigned Gastroenterology Provider 04/01/23 07/28/23 documented as of this encounter
--- OUTSIDE RECORDS SUMMARY | 2023-09-14 06:29 | XMS_ITS | Encounter Summary ---
Author Organization [facility] Address [address] [place] [address]. [place] [address] Care Team Providers Care Fittings Tightener Name Role Phone Tonya Hartman MD Primary Care Provider [phone] Tonya Hartman MD Unavailable [phone] Zak Lin MD Unavailable Arturo Cruz MD Unavailable +[phone] Bette Olmos PA-C Unavailable + [phone] Bette Olmos PA-C Unavailable + [phone] Jessie Ashraf-Hiram Unavailable +[phone] Dada Schultz DO Primary Care Provider [phone] Dada Schultz DO Unavailable Carolina Hancock-Hiram Unavailable [phone] Encounter Details Date Type Department Care Team (Late st Contact Info) Description 03/04/2021 [facility] [place] [facility] [place] [facility] [address] [place] [address] [place] [address] [place] [address] Social History Tobacco Use Types [...] have Coronavirus / COVID-19? No / Unsure 03/03/2021 7:32 AM FARM CREW MEMBER documented as of this encounter Plan of Treatment Not on file documented as of this encounter Visit Diagnoses Not on filedocumented in this encounter Additional Health Concerns Assessment Noted Time PHQ-9 Depression Total Score: 20 021 8:14 AM FARM CREW MEMBER documented as of this encounter Care Teams Fittings Tightener Relationship Specialty [place] [address] [place] [address] PCP - General Family Practice 04/01/17 12/31/21 [place] [address] [place] [address] PCP - General Family Medicine 01/01/22 [place] [address] [place] [address] Assigned PCP 03/11/17 05/08/22 [place] [address] [place] [address] [address] Assigned Musculoskeletal Provider 04/27/21 12/11/22 Arturo Cruz MD 909 [place] [address] Assigned Neuroscience Provider 06/08/21 11/27/22 Bette Olmos PA-C [address] [place] [address] Physician Guidance Adviser Gastroenterology 06/30/21 Bette Olmos PA-C [address] [place] [address] 949855 Physician Guidance Adviser Gastroenterology 06/30/21 Jessie Ashraf PA-C [address] 949805 Assigned Sleep Provider 08/30/21 [place] [address] [place] [address] Assigned PCP 05/09/22 Carolina Hancock PA-C [facility] [place] [address] Assigned Gastroenterology Provider 04/01/23 07/28/23 documented as of this encounter
--- OUTSIDE RECORDS SUMMARY | 2023-09-14 06:29 | XMS_ITS | Encounter Summary ---
Author Organization [place] Address [address] [place] [address] Care Team Providers Care Aquatic Director Name Role Phone Tonya Hartman MD Unavailable [phone] Zak Lin MD Unavailable Arturo Cruz MD Unavailable +[phone] Bette Olmos PA-C Unavailable [phone] Bette Olmos PA-C Unavailable Jessie Ashraf-Hiram Unavailable +[phone] Dada Schultz DO Primary Care Provider Dada Schultz DO Unavailable [phone] Carolina Hancock PA-C Unavailable [phone] Reason for Visit * Reason Onset Date Comments Refill Request 03/04/2022 FLUoxetine (PROZ AC) 20 MG capsule Encounter Details Date Type Department Care Team (Late st Contact Info) Description 03/04/2022 Refill [facility] [address] [place] [address] [place] [address] [place] [address] Refill Request (FLUoxetine (PROZAC) 20 MG capsule) Social History Tobacco Use Types Packs/Day Years [...] often do you attend chur ch or orthodoxy services? Never 08/20/2021 Do you belong to any clubs o r organizations such as mormonism groups, unions, fraternal or athletic groups, or [...] suspected to have Coronavirus/COVID-19? No / Unsure 03/02/2022 1:58 PM SENIOR GROUP MANAGER documented as of this encounter Miscellaneous Notes * Telephone Encounter - Maty Alford RN - 03/05/2022 9:40 AM CST RF too soon. Maty Jaime RN OR GROUP MANAGER documented in this encounter Plan of Treatment Not on file documented as of this encounter Visit Diagnoses Diagnosis Current moderate episode of major depressive disorder without prior episode (H) documented in this encounter Additional Health Concerns Assessment Noted Time PHQ-9 Depression Total Score: 9 01/01/20 7:44 AM CDT documented as of this encounter Care Teams Aquatic Director Relationship Specialty [place] [address] [place] [address] PCP - General Family Medicine 01/01/22 [place] [address] [place] [address] Assigned PCP 03/11/17 05/08/22 [place] [address] [place] [address] Assigned Musculoskeletal Provider 04/27/21 12/11/22 Arturo Cruz MD 909 [place] [address] Assigned Neuroscience Provider 06/08/21 11/27/22 Bette Olmos PA-C [address] [place] [address] Physician Enterprise Software Engineer Gastroenterology 06/30/21 Bette Olmos PA-C [address] [place] [address] Physician Enterprise Software Engineer Gastroenterology 06/30/21 Jessie Ashraf PA-C [address] [address] Assigned Sleep Provider 08/30/21 [place] [address] [place] [address] Assigned PCP 05/09/22 Carolnia Hancock PA-C [facility] [place] [address] Assigned Gastroenterology Provider 04/01/23 07/28/23 documented as of this encounter
--- OUTSIDE RECORDS SUMMARY | 2023-09-14 06:29 | XMS_ITS | Encounter Summary ---
Author Organization [facility] Address [address] [place] [address] Care Team Providers Care Electro Mechanical Solar Technician Name Role Phone Tonya Hartman MD Unavailable [phone] Zak Lin MD Unavailable Arturo Cruz MD Unavailable +[phone] Bette Olmos PA-C Unavailable + [phone] Bette Olmos PA-C Unavailable + [phone] Jessie Ashraf PA-C Unavailable +[phone] Dada Schultz DO Primary Care Provider [phone] Dada Schultz DO Unavailable [phone] Carolina Hancock PA-C Unavailable [phone] Encounter Details Date Type Department Care Team (Late st Contact Info) Description 03/18/2022 [facility] [place] [facility] [address] [place] [address] Rylee Monique MA Social History Tobacco Use Types Packs/Day Years [...] often do you attend chur ch or quaker services? Never 08/20/2021 Do you belong to any clubs o r organizations such as yazidism groups, unions, fraternal or athletic groups, or [...] was confirmed or suspected to have Coronavirus/COVID-19? Unable to assess 03/19/2022 10:49 AM BLEACH MAKER documented as of this encounter Plan of Treatment Not on file documented as of this encounter Visit Diagnoses Not on filedocumented in this encounter Additional Health Concerns Assessment Noted Time PHQ-9 Depression Total Score: 9 01/01/20 7:44 AM CDT documented as of this encounter Care Teams Electro Mechanical Solar Technician Relationship Specialty [place] [address] [place] [address] PCP - General Family Medicine 01/01/22 [place] [address] [place] [address] Assigned PCP 03/11/17 05/08/22 [place] [address] [place] [address] [place] [address] Assigned Musculoskeletal Provider 04/27/21 12/11/22 Arturo Cruz MD [address] [place] [address] 621735 Assigned Neuroscience Provider 06/08/21 11/27/22 Bette Olmos PA-C [address] [place] [address] 371715 Physician Shotweld Operator Gastroenterology 06/30/21 Bette Olmos PA-C [address] [place] [address] Physician Shotweld Operator Gastroenterology 06/30/21 Jessie Ashraf PA-C [address] [address] Assigned Sleep Provider 08/30/21 [place] [address] [address] [place], [place] 3188[address] Assigned PCP 05/09/22 Carolina Hancock PA-C [address] [facility] [place] [place] [address] Assigned Gastroenterology Provider 04/01/23 07/28/23 documented as of this encounter
--- OUTSIDE RECORDS SUMMARY | 2023-09-14 06:29 | XMS_ITS | Encounter Summary ---
Author Organization [facility] Address [address] [place] [address] Care Team Providers Care Trust Administrator Name Role Phone Tonya Hartman MD Primary Care Provider [phone] Tonya Hartman MD Unavailable [phone] Zak Lin MD Unavailable Arturo Cruz MD Unavailable +[phone] Bette Olmos PA-C Unavailable + [phone] Bette Olmos PA-C Unavailable + [phone] Jessie Ashraf PA-C Unavailable +[phone] Dada Schultz DO Primary Care Provider [phone] Dada Schultz DO Unavailable [phone] Carolina Hancock PA-C Unavailable Encounter Details Date Type Department Care Team (Late st Contact Info) Description 12/02/2021 [facility] [place] 718389 [facility] [address] [place] [address] Rylee Monique MA Social History [...] How often do you attend chur or restoration services? Never 08/20/2021 Do you belong to any clubs o r organizations such as latter-day groups, unions, fraternal or athletic groups, or [...] Female 11/25/2020 10:59 AM CDT Sexual Orientation [employer] 11/19/2022 11 :19 PM CDT COVID-19 Exposure Response Date Recorded In the last 10 days, have anya lora been in contact with someone who was confirmed or suspected to have Coronavirus/COVID-19? No / Unsure 12/03/2021 2:50 PM CDT documented as of this encounter Plan of Treatment Not on file documented as of this encounter Visit Diagnoses Not on filedocumented in this encounter Additional Health Concerns Assessment Noted Time PHQ-9 Depression Total Score: 14 022 7:48 AM CDT documented as of this encounter Care Teams Trust Administrator Relationship Specialty [place] [address] [place] [address] PCP - General Family Practice 04/01/17 12/31/21 [place] [address] [place] [address] PCP - General Family Medicine 01/01/22 [place] [address] [place] [address] Assigned PCP 03/11/17 05/08/22 [place] [address] [address] [address] Assigned Musculoskeletal Provider 04/27/21 12/11/22 Arturo Cruz MD [address] [place] [address] Assigned Neuroscience Provider 06/08/21 11/27/22 Bette Olmos PA-C 909 [place] [address] Physician Lgsw Gastroenterology 06/30/21 Bette Olmos PA-C [address] [place] [address] Physician Lgsw Gastroenterology 06/30/21 Jessie Ashraf PA-C [address] [address] Assigned Sleep Provider 08/30/21 [place] [address] [place] [address] Assigned PCP 05/09/22 Carolina Hancock PA-C 2450 [place] [address] Assigned Gastroenterology Provider 04/01/23 07/28/23 documented as of this encounter
--- OUTSIDE RECORDS SUMMARY | 2023-09-14 06:29 | XMS_ITS | Encounter Summary ---
Author Organization [facility] Address [address] [place] [address]. [place] [address] Care Team Providers Care Medical Office Administrator Name Role Phone Tonya Hartman MD Primary Care Provider [phone] Tonya Hartman MD Unavailable [phone] Zak Lin MD Unavailable Arturo Cruz MD Unavailable +[phone] Bette Olmos PA-C Unavailable + [phone] Bette Olmos PA-C Unavailable + [phone] Jessie Ashraf PA-C Unavailable +[phone] Dada Schultz DO Primary Care Provider [phone] Dada Schultz DO Unavailable [phone] Carolina Hancock PA-C Unavailable [phone] Encounter Details Date Type Department Care Team (Late st Contact Info) Description 2021 [facility] [address] [place] [address] Maria A Bailey Social History Tobacco Use Types Packs/Day Years [...] often do you attend chur ch or tenriism services? Never 08/20/2021 Do you belong to any clubs o r organizations such as yazdanism groups, unions, fraternal or athletic groups, or [...] suspected to have Coronavirus/COVID-19? No / Unsure 08/26/2021 3:16 PM CDT documented as of this encounter Plan of Treatment Not on file documented as of this encounter Visit Diagnoses Not on filedocumented in this encounter Additional Health Concerns Assessment Noted Time PHQ-9 Depression Total Score: 14 022 7:48 AM CDT documented as of this encounter Care Teams Medical Office Administrator Relationship Specialty [place] [address] [place] [address] PCP - General Family Practice 04/01/17 12/31/21 [place] [address] [place] [address] PCP - General Family Medicine 01/01/22 [place] [address] [place] [address] Assigned PCP 03/11/17 05/08/22 [place] [address] [place] [address] [address] Assigned Musculoskeletal Provider 04/27/21 12/11/22 Arturo Cruz MD 909 [place], [place] 32644[address] Assigned Neuroscience Provider 06/08/21 11/27/22 Bette Olmos PA-C 909 [place], [place] [address] Physician Allergist Immunologist Gastroenterology 06/30/21 Bette Olmos PA-C 909 [place] [address] Physician Allergist Immunologist Gastroenterology 06/30/21 Jessie Ashraf PA-C [address] [address] Assigned Sleep Provider 08/30/21 [place] [address] [place] [address] Assigned PCP 05/09/22 Carolina Hancock PA-C 2450 [place] [address] Assigned Gastroenterology Provider 04/01/23 07/28/23 documented as of this encounter
--- OUTSIDE RECORDS SUMMARY | 2023-09-14 06:29 | XMS_ITS | Encounter Summary ---
Author Organization [facility] Address [address] [place] [address] Care Team Providers Care House Mother Name Role Phone Tonya Hartman MD Primary Care Provider [phone] Tonya Hartman MD Unavailable [phone] Zak Lin MD Unavailable Arturo Cruz MD Unavailable +[phone] Bette Olmos PA-C Unavailable + [phone] Bette Olmos PA-C Unavailable + [phone] Jessie Ashraf PA-C Unavailable +[phone] Dada Schultz DO Primary Care Provider [phone] Dada Schultz DO Unavailable [phone] Carolina Hancock PA-C Unavailable [phone] Encounter Details Date Type Department Care Team (Late st Contact Info) Description 10/07/2021 [facility] Adv[facility] [address] [address] Galo Mane MA Social History Tobacco Use Types Packs/Day [...] How often do you attend chur or jainism services? Never 08/20/2021 Do you belong to [...] documented as of this encounter Care Teams House Mother Relationship Specialty [place] [address] [place] [address] PCP - General Family Practice 04/01/17 12/31/21 [place] [address] [place] [address] PCP - General Family Medicine 01/01/22 [place] [address] [place] [address] Assigned PCP 03/11/17 05/08/22 [place] [address] [place] [address] [address] Assigned Musculoskeletal Provider 04/27/21 12/11/22 Arturo Cruz MD [address] [place] [address] 980735 Assigned Neuroscience Provider 06/08/21 11/27/22 Bette Olmos PA-C 909 [place] [address] Physician Office Machine Servicer Apprentice Gastroenterology 06/30/21 Bette Olmos PA-C 909 [place] [address] Physician Office Machine Servicer Apprentice Gastroenterology 06/30/21 Jessie Ashraf PA-C [address] [address] Assigned Sleep Provider 08/30/21 [place] [address] [place] [address] Assigned PCP 05/09/22 Carolina Hancock PA-C 2450 [place] [address] Assigned Gastroenterology Provider 04/01/23 07/28/23 documented as of this encounter
--- OUTSIDE RECORDS SUMMARY | 2023-09-14 06:29 | XMS_ITS | Encounter Summary ---
Author Organization [facility] Address [address] [place] [address] Care Team Providers Care Refrigeration Engineering Teacher Name Role Phone Tonya Hartman MD Primary Care Provider [phone] Tonya Hartman MD Unavailable [phone] Tonya Hartman MD Unavailable [phone] Zak Lin MD Unavailable Arturo Cruz MD Unavailable +[phone] Bette Olmos PA-C Unavailable + [phone] Bette Olmos PA-C Unavailable + [phone] Jessie Ashraf-Hiram Unavailable +[phone] Dada Schultz DO Primary Care Provider [phone] Dada Schultz DO Unavailable Carolina Hancock PA-C Unavailable [phone] Encounter Details Date Type Department Care Team (Late st Contact Info) Description 03/09/2018 Orders Only [facility] [address] [place] [address] Marj Hollingsworth CNS [address] [place] [address] Vitamin D deficiency (Primary Dx) Social History Tobacco Use Types Packs/Day Years Used Date Smoking Tobacco: Never Smokeless Tobacco: Never Alcohol Use Standard Drinks/Week Comments Yes 0 (1 standard drink = 0.6 oz pur e alcohol) occ Sex and Gender Information Value Date Recorded Sex Assigned at Female 11/25/2020 10:59 AM CDT Gender Identity Female 11/25/2020 10:59 AM CDT Sexual Orientation Fritz 11/19/2022 11 :19 PM CDT documented as of this encounter Plan of Treatment Not on file documented as of this encounter Results * Vitamin D Deficiency (03/18/2018 11:23 AM CIRCUS RIDER) Vitamin D Deficiency screening 21 20 - 75 ug/L 03/20/2018 1:00 PM CIRCUS RIDER [facility] Comment: Season, race, dietary intake, and treatment affect the concentration of 46-kbpfnxv-Jbaalny D. Values may decrease during winter months and increase during summer months. Values 20-29 ug/L may indicate Vitamin D insufficiency and values <20 ug/L may indicate Vitamin D deficiency. Vitamin D determination is routinely performed by an immunoassay specific for 25 hydroxyvitamin D3. ??If an individual is on vitamin D2 (ergocalciferol) supplementation, please specify 25 OH vitamin D2 and D3 level determination by LCMSMS test VITD23. Blood specimen (specimen) 03/18/2018 11:23 AM CIRCUS RIDER 03/18/2018 11:24 AM CIRCUS RIDER Marj Hollingsworth [facility] - BLOOD ORDERABL ES [facility] [address] [place] [address] documented in this encounter Visit Diagnoses Diagnosis Vitamin D deficiency- Primary Unspecified vitamin D deficiency documented in this encounter Additional Health Concerns Assessment Noted Time PHQ-9 Depression Total Score: 14 018 7:09 AM CDT documented as of this encounter Care Teams Refrigeration Engineering Teacher Relationship Specialty [place] [address] [place] [address] PCP - General Family Practice 04/01/17 12/31/21 [place] [address] [place] [address] PCP - Assigned PCP 03/11/17 05/10/18 [place] [address] [place] [address] PCP - General Family Medicine 01/01/22 [place] [address] [place] [address] Assigned PCP 03/11/17 05/08/22 [place] [address] [address] Assigned Musculoskeletal Provider 04/27/21 12/11/22 Arturo Cruz MD 9 [place] [address] Assigned Neuroscience Provider 06/08/21 11/27/22 Bette Olmos PA-C 909 [place] [address] Physician Sand Shoveler Gastroenterology 06/30/21 Btete Olmos PA-C 9 [place] [address] Physician Sand Shoveler Gastroenterology 06/30/21 Jessie Ashraf PA-C [address] [address] Assigned Sleep Provider 08/30/21 [place] [address] [place] [address] Assigned PCP 05/09/22 Carolina Hancock PA-C [address] [place] [address] Assigned Gastroenterology Provider 04/01/23 07/28/23 documented as of this encounter
--- OUTSIDE RECORDS SUMMARY | 2023-09-14 06:29 | XMS_ITS | Encounter Summary ---
Author Organization [facility] Address [address] [place] [address] Care Team Providers Care Embroidery Machine Operator Name Role Phone Tonya Hartman MD Primary Care Provider [phone] Tonya Hartman MD Unavailable [phone] Zak Lin MD Unavailable Arturo Cruz MD Unavailable +[phone] Bette Olmos PA-C Unavailable + [phone] Bette Olmos PA-C Unavailable + [phone] Jessie Ashraf PA-C Unavailable +[phone] Dada Schultz DO Primary Care Provider [phone] Dada Schultz DO Unavailable [phone] Carolina Hancock PA-C Unavailable [phone] Encounter Details Date Type Department Care Team (Late st Contact Info) Description 11/27/2020 [facility] Intake [address] [place] [address] Shaniqua Galo Social History Tobacco Use Types Packs/Day Years [...] Depression Total Score: 13 019 1:05 PM CAR DESIGNER documented as of this encounter Care Teams Embroidery Machine Operator Relationship Specialty [place] [address] [place] [address] PCP - General Family Practice 04/01/17 12/31/21 [place] [address] [place] [address] PCP - General Family Medicine 01/01/22 [place] [address] [place] [address] Assigned PCP 03/11/17 05/08/22 [place] [address] [place] [address] [address] Assigned Musculoskeletal Provider 04/27/21 12/11/22 Arturo Cruz MD 909 [place], [place] [address] Assigned Neuroscience Provider 06/08/21 11/27/22 Bette Olmos PA-C 909 [place], [place] [address] Physician License Distributor Gastroenterology 06/30/21 Bette Olmos PA-C 909 [place], [place] 638025 Physician License Distributor Gastroenterology 06/30/21 Jessie Ashraf PA-C [address] [address] Assigned Sleep Provider 08/30/21 [place] [address] [place] [address] Assigned PCP 05/09/22 Carolina Hancock PA-C 2450 [place] [address] Assigned Gastroenterology Provider 04/01/23 07/28/23 documented as of this encounter
--- OUTSIDE RECORDS SUMMARY | 2023-09-14 06:29 | XMS_ITS | Encounter Summary ---
Author Organization [place] Address [address] [place] [address] Care Team Providers Care Editor City Name Role Phone Tonya Hartman MD Primary Care Provider [phone] oTnya Hartman MD Unavailable +[phone] Zak Lin MD Unavailable Arturo Cruz MD Unavailable +[phone] Bette Olmos PA-C Unavailable + [phone] Bette Olmos PA-C Unavailable + [phone] Jessie Ashraf PA-C Unavailable +[phone] Dada Schultz DO Primary Care Provider [phone] Dada Schultz DO Unavailable [phone] Carolina Hancock PA-C Unavailable [phone] Encounter Details Date Type Department Care Team (Late st Contact Info) Description 08/13/2021 [facility] [place] Medical Advice [facility] [place] [address] [facility] [address] [place] [address] Heidy Mijares CMA Social History Tobacco Use Types Packs/Day Years [...] documented as of this encounter Care Teams Editor City Relationship Specialty [place] [address] [place] [address] PCP - General Family Practice 04/01/17 12/31/21 [place] [address] [place] [address] PCP - General Family Medicine 01/01/22 [place] [address] [place] [address] Assigned PCP 03/11/17 05/08/22 [place] [address] [address] Assigned Musculoskeletal Provider 04/27/21 12/11/22 Arturo Cruz MD 909 [place] [address] Assigned Neuroscience Provider 06/08/21 11/27/22 Bette Olmos PA-C 909 [place] [address] Physician Closed Circuit Screen Watcher Gastroenterology 06/30/21 Bette Olmos PA-C 909 [place] [address] Physician Closed Circuit Screen Watcher Gastroenterology 06/30/21 Jessie Ashraf PA-C [address] [address] Assigned Sleep Provider 08/30/21 [place] [address] [place] [address] Assigned PCP 05/09/22 Carolina Hancock PA-C 2450 [place] [address] Assigned Gastroenterology Provider 04/01/23 07/28/23 documented as of this encounter
--- OUTSIDE RECORDS SUMMARY | 2023-09-14 06:29 | XMS_ITS | Encounter Summary ---
Author Organization [place] Address [address] [place] [address]99 Care Team Providers Care Counter Pocket Trimmer Name Role Phone Tonya Hartman MD Primary Care Provider [phone] Tonya Hartman MD Unavailable [phone] Zak Lin MD Unavailable Arturo Cruz MD Unavailable +[phone] Bette Olmos PA-C Unavailable + [phone] Bette Olmos PA-C Unavailable + [phone] Jessie Ashraf PA-C Unavailable +[phone] Dada Schultz DO Primary Care Provider [phone] Dada Schultz DO Unavailable [phone] Carolina Hancock PA-C Unavailable [phone] Encounter Details Date Type Department Care Team (Late st Contact Info) Description 10/10/2021 [facility] [place] [address] 5th [place] [address] Christel Hernadez RN Social History [...] How often do you attend chur or latter day services? Never 08/20/2021 Do you belong to any clubs o r organizations such as adventism groups, unions, fraternal or athletic groups, or [...] documented as of this encounter Care Teams Counter Pocket Trimmer Relationship Specialty [place] [address] [place] [address] PCP - General Family Practice 04/01/17 12/31/21 [place] [address] [place] [address] PCP - General Family Medicine 01/01/22 [place] [address] [place] [address] Assigned PCP 03/11/17 05/08/22 [place] [address] [place] [address] [place] [address] Assigned Musculoskeletal Provider 04/27/21 12/11/22 Arturo Cruz MD [address] [place] [address] Assigned Neuroscience Provider 06/08/21 11/27/22 Bette Olmos PA-C 909 [place] [address] Physician [facility] 06/30/21 Bette Olmos PA-C [address] [place] [address] Physician [facility] 06/30/21 Jessie Ashraf PA-C [address] [address] Assigned Sleep Provider 08/30/21 [place] [address] [place] [address] Assigned PCP 05/09/22 Carolina Hancock PA-C 2450 [place] [address] Assigned Gastroenterology Provider 04/01/23 07/28/23 documented as of this encounter
--- OUTSIDE RECORDS SUMMARY | 2023-09-14 06:29 | XMS_ITS | Encounter Summary ---
Author Organization [place] Address [address] [place] [address] Care Team Providers Care Trades Helper Name Role Phone Tonya Hartman MD Primary Care Provider [phone] Tonya Hartman MD Unavailable [phone] Zak Lin MD Unavailable Arturo Cruz MD Unavailable +[phone] Bette Olmos PA-C Unavailable + [phone] Bette Olmos PA-C Unavailable + [phone] Jessie Ashraf PA-C Unavailable +[phone] Dada Schultz DO Primary Care Provider +[phone] Dada Schultz DO Unavailable [phone] Carolina Hancock PA-C Unavailable [phone] Encounter Details Date Type Department Care Team (Late st Contact Info) Description 08/27/2021 [facility] Medical [facility] [address] [place] [address] Starr Marmolejo PA-C [facility] [address] [place] [address] Social History Tobacco Use Types Packs/Day Years [...] often do you attend chur ch or adventist services? Never 08/20/2021 Do you belong to [...] encounter Miscellaneous Notes * Telephone Encounter - Virgie Mcgarry RN - 2021 7:03 AM CDT See my chart Virgie Mcgarry RN documented in this encounter Plan of Treatment Not on file documented as of this encounter Visit Diagnoses Not on filedocumented in this encounter Additional Health Concerns Assessment Noted Time PHQ-9 Depression Total Score: 14 022 7:48 AM CDT documented as of this encounter Care Teams Trades Helper Relationship Specialty [place] [address] [place] [address] PCP - General Family Practice 04/01/17 12/31/21 [place] [address] [place] [address] PCP - General Family Medicine 01/01/22 [place] [address] [place] [address] Assigned PCP 03/11/17 05/08/22 [place] [address] [place] [address] Assigned Musculoskeletal Provider 04/27/21 12/11/22 Arturo Cruz MD [address] [place] [address] Assigned Neuroscience Provider 06/08/21 11/27/22 Bette Olmos PA-C [address] [place] [address] Physician Apns Gastroenterology 06/30/21 Bette Olmos PA-C [address] [place] [address] Physician Apns Gastroenterology 06/30/21 Jessie Ashraf PA-C 6363 [facility] 103 [place] [address] Assigned Sleep Provider 08/30/21 [place] [address] [place] [address] Assigned PCP 05/09/22 Carolina Hancock PA-C [facility] [place] [address] Assigned Gastroenterology Provider 04/01/23 07/28/23 documented as of this encounter
--- OUTSIDE RECORDS SUMMARY | 2023-09-14 06:29 | XMS_ITS | Encounter Summary ---
Author Organization [place] Address [address] [place] [address] Care Team Providers Care Stroke Belt Sander Operator Name Role Phone Tonya Hartman MD Primary Care Provider [phone] Tonya Hartman MD Unavailable +[phone] Zak Lin MD Unavailable Arturo Cruz MD Unavailable +[phone] eBtte Olmos PA-C Unavailable + [phone] Bette Olmos PA-C Unavailable + [phone] Jessie Ashraf PA-C Unavailable + [phone] Dada Schultz DO Primary Care Provider +[phone] Dada Schultz DO Unavailable [phone] Carolina Hancock PA-C Unavailable [phone] Encounter Details Date Type Department Care Team (Latest Contact Info) Description 03/03/2021 Historic Results Social History Tobacco Use Types Packs/Day Years [...] COVID-19? No / Unsure 03/03/2021 7:32 AM WAITER/WAITRESS CAFETERIA documented as of this encounter Plan of Treatment Not on file documented as of this encounter Visit Diagnoses Not on filedocumented in this encounter Additional Health Concerns Assessment Noted Time PHQ-9 Depression Total Score: 20 021 8:14 AM WAITER/WAITRESS CAFETERIA documented as of this encounter Care Teams Stroke Belt Sander Operator Relationship Specialty [place] [address] [place] [address] PCP - General Family Practice 04/01/17 12/31/21 [place] [address] [place] [address] PCP - General Family Medicine 01/01/22 [place] [address] [place] [address] Assigned PCP 03/11/17 05/08/22 [place] [address] [address] Assigned Musculoskeletal Provider 04/27/21 12/11/22 Arturo Cruz MD 909 [place], [place] [address] Assigned Neuroscience Provider 06/08/21 11/27/22 Bette Olmos PA-C 909 [place], [place] [address] Physician Hunting Sales Leader Gastroenterology 06/30/21 Bette Olmos PA-C 909 [place], [place] 363505 Physician Hunting Sales Leader Gastroenterology 06/30/21 Jessie Ashraf PA-C [address] 758335 Assigned Sleep Provider 08/30/21 [place] [address] [place], [place] 38[address] Assigned PCP 05/09/22 Carolina Hancock PA-C 2450 [place], [place] 016754 Assigned Gastroenterology Provider 04/01/23 07/28/23 documented as of this encounter
--- OUTSIDE RECORDS SUMMARY | 2023-09-14 06:29 | XMS_ITS | Encounter Summary ---
Author Organization [place] Address [address] [place] [address] Care Team Providers Care Hydrotel Operator Name Role Phone Tonya Hartman MD Primary Care Provider [phone] Tonya Hartman MD Unavailable +[phone] Zak Lin MD Unavailable Arturo Cruz MD Unavailable +[phone] Bette Olmos PA-C Unavailable + [phone] Bette Olmos PA-C Unavailable + [phone] Jessie Ashraf PA-C Unavailable +[phone] Dada Schultz DO Primary Care Provider [phone] Dada Schultz DO Unavailable [phone] Carolina Hancock PA-C Unavailable [phone] Reason for Referral * Mental Health Outpatient (Routine) - Closed Specialty Diagnoses / Procedures Referred By Rachel lawrence Referred To Contact [place] [address] [place] [address] Referral ID Status Reason Start Date Expiration Date Visits Re quested Visits Authorized [id number] Closed 11/26/2020 11/26/2021 1 1 Question Answer Child/Adolescent or Adult Adult Which Service? Assessments and Testing Assessment & Testing ADHD ADHD Locations Other: [facility] Scheduling Note: We will contact you to schedule the appointment or please call with any questions Comments All scheduling is subject to the client's specific insurance plan & benefits, provider/location availability, and provider clinical specialities. Please arrive 15 minutes early for your first appointment and bring your completed paperwork. Please be aware that coverage of these services is subject to the terms and limitations of your health insurance plan. Call member services at your health plan with any benefit or coverage questions. Encounter Details Date Type Department Care Team (Late st Contact Info) Description 11/25/2020 [facility] Medical Advice [facility] [address] [place] [id number] [place] [id number] [place] [address] Inattention (Primary Dx) Social History Tobacco Use Types [...] encounter Miscellaneous Notes * Telephone Encounter - Tonya Hartman MD - 11/26/2020 12:00 PM CDT Scheduling for ADHD evaluation is really backed up. She can call this number to get something scheduled - I placed a referral. JH documented in this encounter Plan of Treatment Scheduled Referrals Name Type Priority Associated Diagnoses Order Schedule MENTAL HEALTH REFERRAL - Adult; Assessments and Testing; ADHD; Other: Community Network ; We will contact you to schedule the appointment or please call with any questions Referral Routine: Next available opening Inattention Expected: 11/26/2020 (Approximate), Expires: 11/26/2021 documented as of this encounter Visit Diagnoses Diagnosis Inattention- Primary Other specified conditions influencing health status documented in this encounter Additional Health Concerns Assessment Noted Time PHQ-9 Depression Total Score: 13 019 1:05 PM PROPULSION ENGINEER documented as of this encounter Care Teams Hydrotel Operator Relationship Specialty [place] [address] [place] [address] PCP - General Family Practice 04/01/17 12/31/21 [place] [address] [place] [address] PCP - General Family Medicine 01/01/22 [place] [address] [place] [address] Assigned PCP 03/11/17 05/08/22 [place] [address] [place] [place] [address] Assigned Musculoskeletal Provider 04/27/21 12/11/22 Arturo Cruz MD [address] [place] [address] 036785 Assigned Neuroscience Provider 06/08/21 11/27/22 Bette Olmos PA-C [address] [place] [address] 937825 Physician Handle Rounder Operator Gastroenterology 06/30/21 Bette Olmos PA-C 909 [place] [address] Physician Handle Rounder Operator Gastroenterology 06/30/21 Jessie Ashraf PA-C 6363 [facility] 103 [place] [address] Assigned Sleep Provider 08/30/21 [place] [address] [place] [address] Assigned PCP 05/09/22 Carolina Hancock PA-C 2450 [place] [address] Assigned Gastroenterology Provider 04/01/23 07/28/23 documented as of this encounter
--- OUTSIDE RECORDS SUMMARY | 2023-09-14 06:29 | XMS_ITS | Encounter Summary ---
Author Organization [place] Address [address] [place] [address]. [place] [address] Care Team Providers Care Crystal Finisher Name Role Phone Tonya Hartman MD Primary Care Provider [phone] Tonya Hartman MD Unavailable +[phone] Zak Lin MD Unavailable Arturo Cruz MD Unavailable +[phone] Bette Olmos PA-C Unavailable + [phone] Bette Olmos PA-C Unavailable + [phone] Jessie Ashraf PA-C Unavailable +[phone] Dada Schultz DO Primary Care Provider [phone] Dada Schultz DO Unavailable [phone] Carolina Hancock PA-C Unavailable [phone] Encounter Details Date Type Department Care Team (Late st Contact Info) Description 03/24/2021 [facility] Medical Advice [facility] [place] [address] [place] [address] Jez Rodriguez, PT [facility] [address] [place] [address] Social History Tobacco Use Types Packs/Day [...] have Coronavirus / COVID-19? No / Unsure 03/24/2021 2:40 PM HOOP EXPANDER documented as of this encounter Plan of Treatment Not on file documented as of this encounter Visit Diagnoses Not on filedocumented in this encounter Additional Health Concerns Assessment Noted Time PHQ-9 Depression Total Score: 20 021 8:14 AM HOOP EXPANDER documented as of this encounter Care Teams Crystal Finisher Relationship Specialty [place] [address] [place] [address] PCP - General Family Practice 04/01/17 12/31/21 [place] [address] [place] [address] PCP - General Family Medicine 01/01/22 [place] [address] [place] [address] Assigned PCP 03/11/17 05/08/22 [place] [address] [place] [address] Assigned Musculoskeletal Provider 04/27/21 12/11/22 Arturo Cruz MD 909 [place] [address] Assigned Neuroscience Provider 06/08/21 11/27/22 Bette Olmos PA-C 909 [place] [address] Physician Clinical Nurse Leader Gastroenterology 06/30/21 Bette Olmos PA-C 909 [place] [address] Physician Clinical Nurse Leader Gastroenterology 06/30/21 Jessie Ashraf PA-C [address] [address] Assigned Sleep Provider 08/30/21 [place] [address] [place] [address] Assigned PCP 05/09/22 Carolina Hancock PA-C [facility] [place] [address] Assigned Gastroenterology Provider 04/01/23 07/28/23 documented as of this encounter
--- OUTSIDE RECORDS SUMMARY | 2023-09-14 06:29 | XMS_ITS | Encounter Summary ---
Author Organization [place] Address [address] [place] [address] Care Team Providers Care Senior Hardware Design Engineer Name Role Phone Tonya Hartman MD Primary Care Provider [phone] Tonya Hartman MD Unavailable +[phone] Zak Lin MD Unavailable Arturo Cruz MD Unavailable +[phone] Bette Olmos PA-C Unavailable + [phone] Bette Olmos PA-C Unavailable + [phone] Jessie Ashraf PA-C Unavailable +[phone] Dada Schultz DO Primary Care Provider [phone] Dada Schultz DO Unavailable [phone] Carolina Hancock PA-C Unavailable [phone] Encounter Details Date Type Department Care Team (Late st Contact Info) Description 04/18/2021 [facility] [address] [place] [address] Tonya Alvarado Social History Tobacco Use Types Packs/Day Years [...] have Coronavirus / COVID-19? No / Unsure 04/16/2021 5:51 PM COKE WHEELER documented as of this encounter Plan of Treatment Not on file documented as of this encounter Visit Diagnoses Not on filedocumented in this encounter Additional Health Concerns Assessment Noted Time PHQ-9 Depression Total Score: 11 022 7:02 AM COKE WHEELER documented as of this encounter Care Teams Senior Hardware Design Engineer Relationship Specialty [place] [address] [place] [address] PCP - General Family Practice 04/01/17 12/31/21 [place] [address] [place] [address] PCP - General Family Medicine 01/01/22 [place] [address] [place] [address] Assigned PCP 03/11/17 05/08/22 [place] [address] [place] [address] Assigned Musculoskeletal Provider 04/27/21 12/11/22 Arturo Cruz MD 909 [place] [address] Assigned Neuroscience Provider 06/08/21 11/27/22 Bette Olmos PA-C 909 [place] [address] Physician Osteopathic Medicine Teacher Gastroenterology 06/30/21 Bette Olmos PA-C [address] [place] [address] Physician Osteopathic Medicine Teacher Gastroenterology 06/30/21 Jessie Ashraf PA-C 6363 [facility] 233665 Assigned Sleep Provider 08/30/21 [place] [address] [place], [place] [address] Assigned PCP 05/09/22 Carolina Hancock PA-C [address] [place], [place] [address] Assigned Gastroenterology Provider 04/01/23 07/28/23 documented as of this encounter
--- OUTSIDE RECORDS SUMMARY | 2023-09-14 06:29 | XMS_ITS | Encounter Summary ---
Author Organization [place] Address [address] [place] [address] Care Team Providers Care Tetryl Dissolver Operator Name Role Phone Tonya Hartman MD Primary Care Provider [phone] Tonya Hartman MD Unavailable [phone] Zak Lin MD Unavailable Arturo Cruz MD Unavailable +[phone] Bette Olmos PA-C Unavailable + [phone] Bette Olmos PA-C Unavailable + [phone] Jessie Ashraf-Hiram Unavailable +[phone] Dada Schultz DO Primary Care Provider [phone] Dada Schultz DO Unavailable [phone] Carolina Hancock-C Unavailable [phone] Encounter Details Date Type Department Care Team (Late st Contact Info) Description 06/11/2021 [facility] Medical Advice [facility] [place] [address] [facility] [address] [place] [address] [place] [address] [place] [address] [place] [address] Social History Tobacco Use Types Packs/Day [...] Depression Total Score: 11 022 7:02 AM GRID MAKER documented as of this encounter Care Teams Tetryl Dissolver Operator Relationship Specialty [place] [address] [place] [address] PCP - General Family Practice 04/01/17 12/31/21 [place] [address] [place] [address] PCP - General Family Medicine 01/01/22 [place] [address] [place] [address] Assigned PCP 03/11/17 05/08/22 [place] [address] [place] [address] Assigned Musculoskeletal Provider 04/27/21 12/11/22 Arturo Cruz MD 909 [place], [place] 242925 Assigned Neuroscience Provider 06/08/21 11/27/22 Bette Olmos PA-C 909 [place], [place] 933625 Physician Collections Analyst Gastroenterology 06/30/21 Bette Olmos PA-C [address] [place] [address] 525315 Physician Collections Analyst Gastroenterology 06/30/21 Jessie Ashraf PA-C [address] 211745 Assigned Sleep Provider 08/30/21 [place] [address] [place] [address] Assigned PCP 05/09/22 Carolina Hancock PA-C 2450 [place], [place] 749854 Assigned Gastroenterology Provider 04/01/23 07/28/23 documented as of this encounter
--- OUTSIDE RECORDS SUMMARY | 2023-09-14 06:29 | XMS_ITS | Encounter Summary ---
Author Organization [place] Address [address] [place] [address] Care Team Providers Care Valve Technician Name Role Phone Tonya Hartman MD Primary Care Provider [phone] Tonya Hartman MD Unavailable [phone] Zak Lin MD Unavailable Arturo Cruz MD Unavailable +[phone] Bette Olmos PA-C Unavailable + [phone] Bette Olmos PA-C Unavailable + [phone] Jessie Ashraf PA-C Unavailable +[phone] Dada Schultz DO Primary Care Provider [phone] Dada Schultz DO Unavailable [phone] Carolina Hancock PA-C Unavailable [phone] Encounter Details Date Type Department Care Team (Late st Contact Info) Description 06/27/2021 [facility] [place] [address] [place] [address] Rylie Powell, DIANA Social History Tobacco Use Types Packs/Day [...] suspected to have Coronavirus/COVID-19? Unable to assess 06/30/2021 9:20 AM CDT documented as of this encounter Plan of Treatment Not on file documented as of this encounter Visit Diagnoses Not on filedocumented in this encounter Additional Health Concerns Assessment Noted Time PHQ-9 Depression Total Score: 12 022 12:49 PM CDT documented as of this encounter Care Teams Valve Technician Relationship Specialty [place] [address] [place] [address] PCP - General Family Practice 04/01/17 12/31/21 [place] [address] [place] [address] PCP - General Family Medicine 01/01/22 [place] [address] [place] [address] Assigned PCP 03/11/17 05/08/22 [place] [address] [place] [address] Assigned Musculoskeletal Provider 04/27/21 12/11/22 Arturo Cruz MD 9 [place] [address] Assigned Neuroscience Provider 06/08/21 11/27/22 Bette Olmos PA-C 909 [place], [place] 153455 Physician Buggy Operator Gastroenterology 06/30/21 Bette Olmos PA-C 909 [place], [place] 4125[address] Physician Buggy Operator Gastroenterology 06/30/21 Jessie Ashraf PA-C [address] 219265 Assigned Sleep Provider 08/30/21 [place] [address] [place] [address] Assigned PCP 05/09/22 Carolina Hancock PA-C [facility] [place], [place] 954564 Assigned Gastroenterology Provider 04/01/23 07/28/23 documented as of this encounter
--- OUTSIDE RECORDS SUMMARY | 2023-09-14 06:30 | XMS_ITS | Encounter Summary ---
Author Organization [place] Address [address] [place] [address] Care Team Providers Care Hand Compositor Name Role Phone Tonya Hartman MD Primary Care Provider [phone] Tonya Hartman MD Unavailable [phone] Tonya Hartman MD Unavailable [phone] Zak Lin MD Unavailable Arturo Cruz MD Unavailable +[phone] Bette Olmos-C Unavailable + [phone] Bette Olmos-Hiram Unavailable + [phone] Jessie Ashraf PA-C Unavailable +[phone] Dada Schultz DO Primary Care Provider [phone] Dada Schultz DO Unavailable [phone] Carolina Hancock-Hiram Unavailable [phone] Reason for Visit * Reason Onset Date Comments MyChart Communication 07/14/2017 Encounter Details Date Type Department Care Team (Late st Contact Info) Description 07/14/2017 [facility] [id number] [place] [address] [place] [address] [place] [address] MyChart Communication Social History Tobacco Use Types Packs/Day Years [...] Time PHQ-9 Depression Total Score: 14 018 7:37 AM CDT documented as of this encounter Care Teams Hand Compositor Relationship Specialty [place] [address] [place] [address] PCP - General Family Practice 04/01/17 12/31/21 [place] [address] [place] [address] PCP - Assigned PCP 03/11/17 05/10/18 [place] [address] [place] [address] PCP - General Family Medicine 01/01/22 [place] [address] [place] [address] Assigned PCP 03/11/17 05/08/22 [place] [address] [place] [address] [address] Assigned Musculoskeletal Provider 04/27/21 12/11/22 Arturo Cruz MD [address]09 [place] [address] Assigned Neuroscience Provider 06/08/21 11/27/22 Bette Olmos PA-C [address] [place] [address] Physician General Office Associate Gastroenterology 06/30/21 Bette Olmos PA-C [address] [place] [address] Physician General Office Associate Gastroenterology 06/30/21 Jessie Ashraf PA-C [address] [address] Assigned Sleep Provider 08/30/21 [place] [address] [place] [address] Assigned PCP 05/09/22 Carolina Hancock PA-C [facility] [place] [address] Assigned Gastroenterology Provider 04/01/23 07/28/23 documented as of this encounter
--- OUTSIDE RECORDS SUMMARY | 2023-09-14 06:30 | XMS_ITS | Encounter Summary ---
Author Organization [place] Address [address] [place] [address] Care Team Providers Care Cable Rigger Name Role Phone Tonya Hartman MD Primary Care Provider [phone] Tonya Hartman MD Unavailable [phone] Tonya Hartman MD Unavailable [phone] Zak Lin MD Unavailable Arturo Cruz MD Unavailable +[phone] Bette Olmos PA-C Unavailable + [phone] Bette Olmos PA-C Unavailable + [phone] Jessie Ashraf-Hiram Unavailable +[phone] Dada Schultz DO Primary Care Provider [phone] Dada Schultz DO Unavailable [phone] Carolina Hancock PA-C Unavailable [phone] Encounter Details Date Type Department Care Team (Late st Contact Info) Description 06/17/[address] [facility] [address] [place] [address] Suzy Blakely APRN [employer] [address] [place] [address] Social History Tobacco Use Types Packs/Day Years [...] documented as of this encounter Care Teams Cable Rigger Relationship Specialty [place] [address] [place] [address] PCP - General Family Practice 04/01/17 12/31/21 [place] [address] [place] [address] PCP - Assigned PCP 03/11/17 05/10/18 [place] [address] [place] [address] PCP - General Family Medicine 01/01/22 [place] [address] [place] [address] Assigned PCP 03/11/17 05/08/22 [place] [address] [place] [address] Assigned Musculoskeletal Provider 04/27/21 12/11/22 Arturo Cruz MD 909 [place] [address] Assigned Neuroscience Provider 06/08/21 11/27/22 Bette Olmos PA-C [address] [place], [place] 588635 Physician Reflector Driller And Deburrer Gastroenterology 06/30/21 Bette Olmos PA-C [address] [place], [place] [address] Physician Reflector Driller And Deburrer Gastroenterology 06/30/21 Jessie Ashraf PA-C [address] 173985 Assigned Sleep Provider 08/30/21 [place] [address] [place] [address] Assigned PCP 05/09/22 Carolina Hancock PA-C [facility] [place], [place] [address] Assigned Gastroenterology Provider 04/01/23 07/28/23 documented as of this encounter
--- OUTSIDE RECORDS SUMMARY | 2023-09-14 06:30 | XMS_ITS | Encounter Summary ---
Author Organization [place] Address [address] [place] [address] Care Team Providers Care Outdoor Adventure Instructor Name Role Phone Tonya Hartman MD Primary Care Provider [phone] Tonya Hartman MD Unavailable [phone] Tonya Hartman MD Unavailable [phone] Zak Lin MD Unavailable Arturo Cruz MD Unavailable +[phone] Bette Olmos PA-C Unavailable + [phone] Bette Olmos PA-C Unavailable + [phone] Jessie Ashraf-Hiram Unavailable +[phone] Dada Schultz DO Primary Care Provider [phone] Dada Schultz DO Unavailable [phone] Carolina Hancock PA-C Unavailable [phone] Encounter Details Date Type Department Care Team (Late st Contact Info) Description 09/09/2017 MyC Medical Advice [facility] [address] [place] [address] [place] [address] [place] [address] Social History Tobacco Use Types [...] Time PHQ-9 Depression Total Score: 14 018 4:07 AM CDT documented as of this encounter Care Teams Outdoor Adventure Instructor Relationship Specialty [place] [address] [place] [address] PCP - General Family Practice 04/01/17 12/31/21 [place] [address] [place] [address] PCP - Assigned PCP 03/11/17 05/10/18 [place] [address] [place] [address] PCP - General Family Medicine 01/01/22 [place] [address] [place] [address] Assigned PCP 03/11/17 05/08/22 [place] [address] [place] [address] Assigned Musculoskeletal Provider 04/27/21 12/11/22 Arturo Cruz MD [address] [place] [address] Assigned Neuroscience Provider 06/08/21 11/27/22 Bette Olmos PA-C [address] [place], [place] [address] Physician Top Collar Maker Gastroenterology 06/30/21 Bette Olmos PA-C [address] [place], [place] [address] Physician Top Collar Maker Gastroenterology 06/30/21 Jessie Ashraf PA-C [address] 680985 Assigned Sleep Provider 08/30/21 [place] [address] [place], [place] [address] Assigned PCP 05/09/22 Carolina Hancock PA-C [address] [place], [place] [address] Assigned Gastroenterology Provider 04/01/23 07/28/23 documented as of this encounter
--- OUTSIDE RECORDS SUMMARY | 2023-09-14 06:30 | XMS_ITS | Encounter Summary ---
Author Organization [place] Address [address] [place] [address] Care Team Providers Care Justice Court Judge Name Role Phone Tonya Hartman MD Primary Care Provider [phone] Tonya Hartman MD Unavailable [phone] Tonya Hartman MD Unavailable [phone] Zak Lin MD Unavailable Arturo Cruz MD Unavailable [phone] Bette Olmos PA-C Unavailable + [phone] Bette Olmos PA-C Unavailable + [phone] Jessie Ashraf-Hiram Unavailable +[phone] Dada Schultz DO Primary Care Provider [phone] Dada Schultz DO Unavailable [phone] Carolina Hancock PA-C Unavailable [phone] Encounter Details Date Type Department Care Team (Late st Contact Info) Description 07/16/2017 MyC Medical Advice [facility] [address] [place] [address] Suzy Blakely APRN INSPECTOR [employer] [address] [place] [address] Social History Tobacco Use Types Packs/Day Years [...] documented as of this encounter Care Teams Justice Court Judge Relationship Specialty [place] [address] [place] [address] PCP - General Family Practice 04/01/17 12/31/21 [place] [address] [place] [address] PCP - Assigned PCP 03/11/17 05/10/18 [place] [address] [place] [address] PCP - General Family Medicine 01/01/22 [place] [address] [place] [address] Assigned PCP 03/11/17 05/08/22 [place] [address] [place] [address] Assigned Musculoskeletal Provider 04/27/21 12/11/22 Arturo Cruz MD [address]09 [place] [address] Assigned Neuroscience Provider 06/08/21 11/27/22 Bette Olmos PA-C [address] [place], [place] [address] Physician Knitting Machine Operator Gastroenterology 06/30/21 Bette Olmos PA-C [address] [place], [place] [address] Physician Knitting Machine Operator Gastroenterology 06/30/21 Jessie Ashraf PA-C [address] 644635 Assigned Sleep Provider 08/30/21 [place] [address] [place] [address] Assigned PCP 05/09/22 Carolina Hancock PA-C [facility] [place], [place] [address] Assigned Gastroenterology Provider 04/01/23 07/28/23 documented as of this encounter
[2023-09-14 06:34] VITALS: BMI 27.6
[2023-09-14 06:56] VITALS: BP 118/91; PULSE 85; RESP 16; TEMP 36.9; O2SAT 96
[2023-09-14] MEDS: LACTATED RINGERS 1000 ML 1,000 ML 100 ML IV (06:57)
[2023-09-14] MEDS: SODIUM CHLORIDE 0.9 % (FLUSH) 10 ML SYRINGE IVF (06:57)
[2023-09-14] MEDS: CEFAZOLIN 2 GM INJ IVP (07:20)
[2023-09-14] MEDS: BUPIVACAINE 0.5 %/EPI 1:200K 30 ML INJECTION (07:46)
--- NOTE | 2023-09-14 07:51 | P.ORPRC_ITS ---
Procedure Note Date of procedure: 09/14/23 Procedure: PREOPERATIVE DIAGNOSIS: Right ankle fracture ORIF with retained hardware POSTOPERATIVE DIAGNOSIS: Right ankle fracture ORIF with retained hardware SURGEON: Ishan Johnson MD HARVESTING SUPERVISOR: Sara Swan PA-C NAME OF OPERATION: Hardware removal deep ANESTHESIA: Local ESTIMATED BLOOD LOSS: 5 mL COMPLICATIONS: None SPECIMENS: None DRAINS: None PREOPERATIVE ANTIBIOTICS: Ancef 1 gram INDICATIONS: The patient is a 28-year-old who sustained an ankle fracture. ORIF was completed previously. They present today for elective syndesmotic screw removal. The risks, benefits and expected outcomes were discussed in detail. These included but were not limited to: Infection, bleeding, injury to blood vessel or nerve, venous thromboembolism. All questions were answered to their satisfaction. Use of an freezer assistant was necessary throughout the case for patient positioning and safety, soft tissue retraction and closure. PROCEDURE: The patient was placed supine on the operating room table. IV sedation was administered. Local anesthesia was administered. The lower extremity was prepped and draped in the usual sterile fashion. The image intensifier was used to confirm location of the syndesmotic screws. We utilized our previously placed incision and opened it longitudinally. Subcutaneous dissection was bluntly taken to the screw heads which were fully exposed. Each screw was removed intact, without complication. The image intensifier was used to obtain an AP, mortise and lateral view of the ankle, showing the screws have been removed. The wound was irrigated with normal saline. The freezer assistant closed soft tissue with a 3-0 nylon in a simple, interrupted fashion. The freezer assistant placed a soft dressing. Sponge and needle counts were correct x 2. The patient tolerated the procedure well. There were no apparent complications. They were carefully transferred to the hospital bed and taken to the postanesthesia care unit in satisfactory condition. PLAN: The patient will be discharged to home. They may weightbear as tolerates. Ice, ibuprofen and Tylenol will be used as needed for pain. They will follow up in the office in 2 weeks for a wound check and suture removal.
[2023-09-14 08:00] VITALS: BP 110/100; PULSE 107; RESP 16; TEMP 37.1; O2SAT 98
--- NOTE | 2023-09-14 08:08 | W.ANESCHARGE ---
Anesthesia Charges Start Date/Time Anesthesia Start Date: 09/14/23 Anesthesia Start Time: 07:17 Stop Date/Time Anesthesia Stop Date: 09/14/23 Anesthesia Stop Time: 08:05
[2023-09-14 08:15] VITALS: BP 138/84; PULSE 110; RESP 16; O2SAT 98
[2023-09-14 08:38] VITALS: BP 138/84; PULSE 97; RESP 16; O2SAT 95
--- NOTE | 2023-09-14 08:46 | W.ANESCHARGE ---
Anesthesia Charges Start Date/Time Anesthesia Start Date: 09/14/23 Anesthesia Start Time: 07:17 Stop Date/Time Anesthesia Stop Date: 09/14/23 Anesthesia Stop Time: 08:05
--- NOTE | 2023-09-14 09:02 | SUR.PHASEII ---
pt doing well. states the nerve stimulator is working for pt. Pt alert and orientated, taking sips of pop and eating yogurt. Denies pain in ankle. Ice pack on, dressing c/d/i. Reviewed instructions with pt and . All questions answered. wheelchair ride out to car.
== END 2023-09-14 09:15 | disposition home or self-care (01) ==
LOC: OR 06:26
PROVIDERS: Visit Provider Orthopaedic Surgery
PROC: (CPT 20680; principal; 2023-09-14 07:15)
DX: Z47.2 Encounter for removal of internal fixation device (principal)
CPT/HCPCS: 20680; 01480; 73600; 76000; 81025; J0690; J1100; J1885; J2405; J2704; J3010; J3490; J7120

== ENCOUNTER 2024-07-20 13:26 | Outpatient (CLI) | payer BC, SELFPAY | END 2024-07-20 13:27 | disposition home or self-care (01) | PROVIDERS: Visit Provider Physician Assistant | DX: L08.9 Local infection of the skin and subcutaneous tissue, unspecified (principal); S61.451A Open bite of right hand, initial encounter | CPT/HCPCS: 85651; 86140 ==

== ENCOUNTER 2024-07-21 16:27 | Emergency (ER) | payer BC, SELFPAY ==
[2024-07-21 16:34] VITALS: BP 136/80; PULSE 86; RESP 18; TEMP 37.3; O2SAT 97; BMI 31.6
--- NOTE | 2024-07-21 17:44 | ED_ITS ---
HPI - General Adult General Date Seen: 07/21/24 Chief complaint: Extremity Pain/Injury, Upper Stated complaint: dog bite on right hand Time Seen by Provider: 07/21/24 17:07 History of Present Illness HPI narrative: Patient is a 28-year-old here with her for evaluation of her right hand. She sustained a dog bite 2 days ago, seen in urgent care yesterday due to concerns of infection and was started on Augmentin at that time. The bite wounds are on the dorsum and the palmar surface of the hand near the 3rd and 4th MCP joints. She notes pain with movement of those fingers, there is some swelling and mild redness. Looking at the urgent care note it looks like the exam is about the same. The dog was a rescue dog, up-to-date on immunizations, her tetanus is up-to-date, apparently they were at the that today and that advised that she should be seen in an ER. She notes pain in the hand but her says that she does have a history of complex regional pain syndrome in that extremity and so any kind of injury tends to flare those nerves. It does not look any worse today than it did, but the that told him that it should look better than it does after being started on antibiotics yesterday. No fevers or systemic complaints. Related Data Home Medications ?Medication ?Instructions ?Recorded ?Confirmed fluoxetine 20 mg capsule 20 mg PO 06/03/23 07/20/24 loratadine 10 mg tablet (Claritin) 10 mg PO DAILY 06/03/23 07/21/24 ondansetron 4 mg disintegrating 4 mg PO 09/06/23 07/20/24 tablet pantoprazole 20 mg tablet,delayed 20 mg PO DAILY 09/06/23 07/21/24 release hydroxyzine HCl 25 mg tablet 2.5 mg PO 3XD PRN anxiety 07/20/24 07/21/24 Previous Rx's ?Medication ?Instructions ?Recorded amoxicillin 875 mg-potassium 1 tab PO BID 10 days #20 tabs 07/20/24 clavulanate 125 mg tablet Allergies Allergy/AdvReac Type Severity Reaction Status Date / Time No Known Drug Allergies Allergy Verified 07/21/24 16:40 Review of Systems Status of ROS: Reports: 6 or more systems reviewed and unremarkable except as noted in History and below [facility] Surgical History Status post hardware removal (09/14/23) ?Z98.890 - Other specified postprocedural states (ICD-10) History of open reduction and internal fixation (ORIF) procedure (06/10/23) ?Z98.890 - Other specified postprocedural states (ICD-10) Spinal cord stimulator status ?Z96.89 - Presence of other specified functional implants (ICD-10) History of appendectomy (05/23/19) ?Z90.49 - Acquired absence of other specified parts of digestive tract (ICD- 10) Family History Father Diabetes High blood pressure Paternal Grandmother Ovarian cancer Breast cancer Other Cervical cancer Social History Narrative: . No children. Self employed - dog rescue. No children. Formal exercise. Non-smoker. Alcohol, none. Smoke marijuana. Smoking Status: Never smoker Do you use any of these nicotine containing products: None Second hand tobacco smoke exposure: No How often do you have a drink containing alcohol: never How often do you have six or more drinks on one occasion: Never AUDIT-C Alcohol total score: 0 Non-prescribed substance use: marijuana (any form) Non-prescribed substance use details: smokes daily Caffeine: Yes Are you now , , , , never or living with a partner: Social isolation score (0-1 are the most socially isolated patients): 1 Are you using contraception or practicing any form of control: No Exam Narrative: Exam Narrative: Vital signs reviewed In general, an alert nontoxic young woman. Extremities examination of the right hand shows some edema over the dorsum and palmar aspect of the hand near the bite wounds, 1 of which is at the webspace between the 4th and 5th fingers and 1 is no on the home between the 3rd and 4th fingers at the level of the MCP joints. There is no purulence. She notes severe tenderness with palpation of either of the wounds. She will not move her fingers very much for me, and complained of pain with passive range of motion, although I did note when I was not directly examining her that she did move her fingers passively seemingly without discomfort. There is very faint erythema, there is no significant swelling of the digits to suggest a tendon sheath infection. Distal CMS intact. Const: Vital Signs, click to edit/add: Vital Signs - 24 hr 07/21/24 16:34 Temperature 99.1 F Pulse Rate [Right Pulse Oximeter] 86 Respiratory Rate 18 Blood Pressure [Le ft Forearm] 136/80 Pulse Oximetry 97 Oxygen Delivery Me thod Room Air Course Course ED Course: Overall, exam seems to be similar to yesterday. Discussed with them that I am not surprised it is not significantly improved after a couple of doses of antibiotics, I think it is too soon to see any significant improvement. I am going to do an x-ray just to make sure that looks okay, offered a splint if she would like to is for comfort, but overall I think she just needs to continue the antibiotics and give this a few more days to see what direction it goes. Discussed that it is certainly possible that this could get worse and if so we need to see her back, but at this point I do not see anything that would require more aggressive treatment such as IV antibiotics, hospitalization or surgery. X-ray by my review is negative for foreign body or other concerning findings. Radiology likewise resistance negative. I have discussed this with her. Offered IM Rocephin but she would like to hold off on this for now. I did place an ulnar gutter splint for comfort and she feels quite a bit better with that. Discussed reasons to return, discussed that while this may not be significantly improved for a few days, it should not get significantly worse and if it does she is seen again. Otherwise recheck primary care next week. Vital Signs Vital signs: Initial Vital Signs Temperature 99.1 F 07/21/24 16:34 Temperature Source Temporal Artery Scan 07/21/24 16:34 Pulse Rate 86 07/21/24 16:34 Pulse Rhythm Regular 07/21/24 16:34 Pulse Strength 3+ Normal 07/21/24 16:34 Respiratory Rate 18 07/21/24 16:34 Blood Pressure 136/80 07/21/24 16:34 Blood Pressure Mean 98 07/21/24 16:34 Blood Pressure Position Sitting 07/21/24 16:34 Pulse Oximetry 97 07/21/24 16:34 Oxygen Delivery Method Room Air 07/21/24 16:34 Vital Signs Temperature 99.1 F 07/21/24 16:34 Pulse Rate 86 07/21/24 16:34 Respiratory Rate 18 07/21/24 16:34 Blood Pressure 136/80 07/21/24 16:34 Pulse Oximetry 97 07/21/24 16:34 Oxygen Delivery Method Room Air 07/21/24 16:34 Temperature 99.1 F 07/21/24 16:34 Pulse Rate 86 07/21/24 16:34 Respiratory Rate 18 07/21/24 16:34 Blood Pressure 136/80 07/21/24 16:34 Pulse Oximetry 97 07/21/24 16:34 Oxygen Delivery Method Room Air 07/21/24 16:34 Medical Decision Making Imaging Data Right hand x-ray: Attestation: I have reviewed the pertinent imaging results. Radiologist's impression: [place] [address] Diagnostic Imaging Report Patient: Shine Mary MR#: [id number] : 1995 Acct:[id number] Loc: ED Service Date: 07/21/[address]: Ordering Physician: Tonya Uribe M.D. Date of Service: 07/21/24 Procedure(s): XR hand RT min 3V Accession Number(s): [id number] cc: Tonya Uribe M.D.; Provider,Not a Local~ For Patients: As a result of the Cures Act, medical imaging exams and procedure reports are released immediately into your electronic medical record. You may view this report before your referring provider. If you have questions, please contact your health care provider. Indication: Trauma. Dog bite. Technique: Right hand, 3 views. Comparison: None. Findings/Impression: Bones: Alignment is normal. No displaced fractures or bone lesions. Joint spaces: Unremarkable. Soft tissues: No radiopaque foreign bodies. Dictated by Lc Lopez MD @ 07/21/2024 6:23:10 PM Discharge Plan Discharge Clinical Impression: Cellulitis of hand, right, Dog bite Patient Disposition: Home, Self-Care Condition: Stable Instructions: Animal Bite (ED), Cellulitis (ED) Additional Instructions: Continue your Augmentin. He should recheck with primary care next week. Splint for comfort. Return any time if you feel you are getting significantly worse, have significantly worsening swelling, redness, pain or new systemic symptoms such as fever, chills, nausea or vomiting. Prescriptions: No Action ondansetron 4 mg tablet,disintegrating 4 mg PO pantoprazole 20 mg tablet,delayed release (DR/EC) 20 mg PO DAILY hydroxyzine HCl 25 mg tablet 2.5 mg PO 3XD PRN (Reason: anxiety) amoxicillin-pot clavulanate 875-125 mg tablet 1 tab PO BID 10 Days Qty: 20 0RF fluoxetine 20 mg capsule 20 mg PO loratadine [Claritin] 10 mg tablet 10 mg PO DAILY Follow Up/Referrals: Provider,Not a Local [Primary Care Provider] - Stand Alone Forms: [facility] Info Instructions
== END 2024-07-21 19:02 | disposition home or self-care (01) ==
PROVIDERS: Emergency Provider Emergency Medicine
DX: S61.451A Open bite of right hand, initial encounter (principal); L03.113 Cellulitis of right upper limb; W54.0XXA Bitten by dog, initial encounter
CPT/HCPCS: 73130; 99283; 99284